=== PATIENT | female | born 2000 | race Caucasian/White ===

== ENCOUNTER 2024-06-19 10:22 | Outpatient (OUT) | payer MEDICAID, SELFPAY ==
[2024-06-19 11:28] LABS: Basophils Percent Auto 0.8 % (0.2-2.0); Eosinophils Absolute Auto 0.1 10^3/uL (0.0-0.7); Eosinophils Percent Auto 1.1 % (0.9-7.0); Hematocrit 43.1 % (36.0-48.0); Hemoglobin 15.1 g/dL (12.0-16.0); Immature Granulocytes Abs Auto 0.01 10^3/uL (0.00-0.03); Immature Granulocytes Pct Auto 0.2 % (0.0-0.5); Lymphocytes Absolute Auto 2.1 10^3/uL (1.2-3.8); Lymphocytes Percent Auto 44.2 % (20.5-60.0); Mean Corpuscular Hemoglobin 33.5 pg (26.7-34.0); Mean Corpuscular Volume 95.6 fL (81.0-99.0); Mean Platelet Volume 9.6 fL (9.5-13.5); Monocytes Absolute Auto 0.4 10^3/uL (0.3-0.8); Monocytes Percent Auto 8.5 % (1.7-12.0); Neutrophils Absolute Auto 2.1 10^3/uL (1.4-6.5); Neutrophils Percent Auto 45.2 % (43.0-75.0); Platelet Count 273 10^3/uL (150-450); Red Blood Count 4.51 10^6/uL (4.20-5.40); Red Cell Distribution Width 11.8 % (11.0-15.0); White Blood Count 4.7 10^3/uL (4.0-11.0)
[2024-06-19 11:54] LABS: Partial Thromboplastin Time 27.9 sec (22.3-36.2); Prothrombin Time 10.6 sec (9.0-11.6)
[2024-06-19 11:57] LABS: Free T4 0.91 ng/dL (0.76-1.46)
[2024-06-19 12:04] LABS: Thyroid Stimulating Hormone 1.052 uIU/mL (0.358-3.740); Total Protein 7.3 g/dL (6.4-8.2)
[2024-06-19 12:05] LABS: HCG Quantitative <1 mIU/mL
[2024-06-19 12:27] LABS: Estimated Average Glucose 108 mg/dL; Glycohemoglobin A1C 5.4 % (4.5-6.2)
[2024-06-20 15:08] LABS: Beta-2 Glycoprotein I Ab, IgA <9 (0-25); Beta-2 Glycoprotein I Ab, IgG <9 (0-20); Beta-2 Glycoprotein I Ab, IgM <9 (0-32)
[2024-06-21 03:07] LABS: Antithrombin Activity 94 % (75-135); Protein C-Functional 85 % (73-180)
== END 2024-06-19 10:23 | disposition home or self-care (01) ==
PROVIDERS: Family Provider Pediatrics; Visit Provider Obstetrics & Gynecology
DX: N92.0 Excessive and frequent menstruation with regular cycle (principal); D69.9 Hemorrhagic condition, unspecified
CPT/HCPCS: 36415; 81241; 83036; 84155; 84439; 84443; 84702; 85025; 85300; 85303; 85306; 85610; 85613; 85730; 86146; 86147

== ENCOUNTER 2025-03-26 15:55 | Outpatient (REF) | payer OTHER, MEDICAID, SELFPAY ==
--- OUTSIDE RECORDS SUMMARY | 2024-09-19 03:15 | XMS_ITS ---
Author Organization [facility] Servic es Address [address] [place] [address] Care Team Providers Care Red Hat Linux Engineer Name Role Phone Paula Ewing Primary Care Provider Adrianna Guidry Unavailable [phone] GUICHO MONTEIRO Unavailable Unavailable REASON FOR VISIT 3 weeks Social History Sex Assigned At : Social History Observation Description Sex Assigned At Female Encounters Encounter Location Date Provider Diagnosis [address] [place] [address] 09/19/2024 Paula Ewing Plan Of Treatment No Information Progress Notes * VIVIAN MCNALLY GDOB:2000 (24 yo F)Acc No.[id number]:09/19/2024 Behavioral Health Patient: Tamar VIVIAN VALENTINE Provider:?TARA CHENGHNP-BCDOB: 2000???Age:23 Y???Sex:FemaleDate:09/19/2024Phone:[phone]:[address], [place] Subjective: * Chief Complaints: * 3 weeks * Electronic signature of SONA Cheng BC on 03/26/2025 at 08:57 AM EST Sign off status: Pending * Appointment Provider: TARA MORELHNP-BC Date: 0 09/19/2024 Generated for Printing/Faxing/eTransmitting on:?03/26/2025 08:57 AM EST
--- OUTSIDE RECORDS SUMMARY | 2024-09-25 09:15 | XMS_ITS ---
Author Organization [facility] Servic es Address [address] [place] [address] Care Team Providers Care Buffing And Sueding Machine Operator Name Role Phone Paula Ewing Primary Care Provider [phone] Adrianna Guidry [phone] GUICHO MONTEIRO Unavailable Unavailable REASON FOR VISIT 2 week f/u Social History Sex Assigned At : Social History Observation Description Sex Assigned At Female Encounters Encounter Location Date Provider Diagnosis [address] [address] 09/25/2024 Adrianna Guidry Plan Of Treatment No Information Progress Notes * VIVIAN MCNALLY GDOB:2000 (24 yo F)Acc No.[id number]:09/25/2024 F/U - Patient Patient: Tamar VALENTINE VIVIAN Maria C :?Adrianna Guidry LPCDOB:2000???Age:23 Y ???Sex:FemaleDate:09/25/2024Phone:[phone]:[address], [place]Zna:Paula Ewing Subjective: * Chief Complaints: * 2 week f/u Care Plan Details* * Electronic signature of Adrianna Guidry LPC on 03/26/2025 at 08:57 AM ESTSign off status: Pending * Provider: Eleni Guidry LPC Date: 0 09/25/2024 Generated for Printing/Faxing/eTransmitting on:?03/26/2025 08:57 AM EST
--- OUTSIDE RECORDS SUMMARY | 2025-01-08 05:30 | XMS_ITS ---
Author Organization [facility] Servic es Address [address] [place] [address] Care Team Providers Care Burr Machine Operator Name Role Phone Paula Ewing Primary Care Provider [phone] Adrianna Guidry Unavailable [phone] GUICHO MONTEIRO Unavailable Unavailable REASON FOR VISIT 2 week f/u Social History Sex Assigned At : Social History Observation Description Sex Assigned At Female Encounters Encounter Location Date Provider Diagnosis [address] [facility] [place] [address] 01/08/2025 Adrianna Guidry Plan Of Treatment No Information Progress Notes * VIVIAN MCNALLY GDOB:2000 (24 yo F)Acc No.[id number]:01/08/2025 F/U - Patient Patient: Tamar VALENTINE VIVIAN Maria C :?Adrianna Guidry LPCDOB:2000???Age:24 Y ???Sex:FemaleDate:01/08/2025Phone:[phone]:[address], [place]Itf:Paula Ewing Subjective: * Chief Complaints: * 2 week f/u Billing Information: * Procedure Codes: Care Plan Details* * Electronic signature of Adrianna Guidry LPC on 03/26/2025 at 08:57 AM ESTSign off status: Pending * Provider: Eleni Guidry LPC Date: 0 01/08/2025 Generated for Printing/Faxing/eTransmitting on:?03/26/2025 08:57 AM EST
--- OUTSIDE RECORDS SUMMARY | 2025-01-14 06:15 | XMS_ITS ---
Author Organization [facility] Servic es Address [address] [place] [address] Care Team Providers Care Cherry Sorter Name Role Phone Paula Ewing Primary Care Provider [phone] Adrianna Guidry Unavailable [phone] GUICHO MONTEIRO Unavailable Unavailable REASON FOR VISIT 1 month f/u Social History Sex Assigned At : Social History Observation Description Sex Assigned At Female Encounters Encounter Location Date Provider Diagnosis [address] [place] [address] 01/14/2025 Paula Ewing Plan Of Treatment No Information Progress Notes * VIVIAN MCNALLY GDOB:2000 (24 yo F)Acc No.[id number]:01/14/2025 Behavioral Health Patient: Tamar VIVIAN VALENTINE Provider:?MINA ASENCIODOB: 2000???Age:24 Y???Sex:FemaleDate:01/14/2025Phone:[phone]:[address], [place] Subjective: * Chief Complaints: * 1 month f/u Billing Information: * Procedure Codes: * Electronic signature of SONA Asencio on 03/26/2025 at 08:57 AM EST Sign off status: Pending * Appointment Provider: MINA MOREL Date: 0 01/14/2025 Generated for Printing/Faxing/eTransmitting on:?03/26/2025 08:57 AM EST
--- OUTSIDE RECORDS SUMMARY | 2025-02-19 05:30 | XMS_ITS ---
Author Organization [facility] Address [address] [place] [address] Care Team Providers Care Project Associate Name Role Phone SAEIDMARTINCHRISTINE Unavailable Unavailable Edy Khoury Unavailable [phone] REASON FOR VISIT LEFT GREAT TOE/LEFT HAND PAIN Encounters Encounter Location Date Provider Diagnosis [facility] [address] [place] [address] 02/19/2025 Edy Khoury Acute pain of left foot M79.672 and Pain in left hand M79.642 Assessments Encounter Date Diagnosis (ICD Code) Assessment Notes Treatment Notes Treatment Clinical Notes Section Notes 02/19/2025 Acute pain of left foot (ICD-10 - M79.672) 02/19/2025Pain in left hand (ICD-10 - M79.642) Plan Of Treatment Pending Test Test Name Order Date SCC- FOOT 3 VIEW LEFT 18011 02/19/2025 SCC- HAND 3 VIEW LEFT 42675 02/19/2025 Progress Notes * VIVIAN MCNALLY GDOB:2000 (24 yo F)Acc No.[id number]:02/19/2025 Patient:?VIVIAN MCNALLY :?Edy Khoury, MDDOB:2000???Age:24 Y ???Sex:FemaleDate:02/19/2025Phone:[phone]:[address] [place] [address] Subjective: * Chief Complaints: * 1 . LEFT GREAT TOE/LEFT HAND PAIN. * Medical History: Objective: * Vitals: Assessment: * Assessment: 1.?Acute pain of left foot - M79.672???2.?Pain in left hand - M79.642??? Plan: * Treatment: ?Imaging: SCC- FOOT 3 VIEW LEFT 609773.?Pain in left hand?Imaging: SCC- HAND 3 VIEW LEFT 43175 * Procedure Codes: 7 3630 X-ray Foot, 3 view, 82137 X-ray Hand, 3 view Forms: * Images: * Electronic signature of Edy Khoury MD on 03/26/2025 at 08:57 AM ESTSign off status: Pending * Provider: Tri Khoury MD Date: 1 Generated for Printing/Faxing/eTransmitting on:?03/26/2025 08:57 AM EST
--- OUTSIDE RECORDS SUMMARY | 2025-02-27 03:30 | XMS_ITS ---
Author Organization [facility] Servic es Address [address] [place] [address] Care Team Providers Care Logger Name Role Phone Paula Ewing Primary Care Provider Adrianna Guidry Unavailable [phone] GUICHO MONTEIRO Unavailable Unavailable REASON FOR VISIT BH F/U Social History Sex Assigned At : Social History Observation Description Sex Assigned At Female Encounters Encounter Location Date Provider Diagnosis [address] [place] [address] 02/27/2025 Paula Ewing Plan Of Treatment No Information Progress Notes * VIVIAN MCNALLY GDOB:2000 (24 yo F)Acc No.[id number]:02/27/2025 Behavioral Health Patient: Tamar VIVIAN VALENTINE Provider:?DIANA CHENGP-BCDOB: 2000???Age:24 Y???Sex:FemaleDate:02/27/2025Phone:[phone]:[address], [place] Subjective: * Chief Complaints: * B H F/U * Electronic signature of SONA Cheng BC on 03/26/2025 at 08:57 AM EST Sign off status: Pending * Appointment Provider: DIANA MORELP-BC Date: Generated for Printing/Faxing/eTransmitting on:?03/26/2025 08:57 AM EST
--- OUTSIDE RECORDS SUMMARY | 2025-03-26 09:00 | XMS_ITS | Encounter Summary ---
Author Organization [facility] Address [address] [place] [address] Care Team Providers Care Transplant Coordinator Name Role Phone Radha Camacho DO Unavailable [phone] Trinity Hansen DO Primary Care Provider Encounter Details DateTypeDepartmentCare Team (Latest Contact Info)Cryydfckpws92/25/2025 9:00 AM ESTProcedure Visit [facility] [address] [place] [address] Trinity Palmer PA [address] [place] [address] Well woman exam with routine gynecological exam Social History Tobacco UseTypesPacks/DayYears UsedDateSmoking Tobacco: NeverSmokeless Tobacco: NeverAlcohol UseStandard Drinks/WeekCommentsNever0 (1 standard drink = 0.6 oz pure alcohol)caffeine intake: 1-2 cups per dayCommentsUnknownSex and Gender InformationValueDate RecordedSex Assigned at BirthNot on fileLegal Sex Dkzgfl5507/14/2022 6:39 PM EDTGender IdentityNot on fileSexual OrientationNot on filedocumented as of this encounter Last Filed Vital Signs Vital SignReadingTime TakenCommentsBlood Ezvqiooz397/8203/26/2025 9:21 AM EST Pulse--Temperature--Respiratory Rate--Oxygen Saturation--Inhaled Oxygen Concentration--Htpzht77.1 kg (192 lb 1.9 oz)03/26/2025 9:21 AM ESTHeight--Body Mass Index34.03008/30/2023 9:11 AM EDTdocumented in this encounter Progress Notes * KASEY Patel - 03/26/2025 9:00 AM EST Reason for Appointment: Patient ID: Kenya Polanco is a 24 y.o. female who presents for No chief complaint on file. Patient presents today for Annual Exam. MEDICATIONS Current Outpatient Medications Medication Instructions ??? buPROPion XL (WELLBUTRIN XL) 300 mg, Every morning ??? cetirizine (ZYRTEC) 10 mg, Every 24 hours ??? desogestrel-ethinyl estradiol (Apri) 0.15-30 MG-MCG tablet 1 tablet, Oral, Daily, Take 1 tabletby mouth daily ??? escitalopram (LEXAPRO) 10 mg, Daily ??? fluticasone (Flonase Allergy Relief) 50 MCG/ACT nasal spray Every 12 hours ??? hydrOXYzine HCl (Atarax) 25 MG tablet Every 24 hours ??? montelukast (Singulair) 10 MG tablet 1 tablet, Oral, Daily ALLERGIES Allergies Allergen Reactions ??? Wound Dressing Adhesive Itching PROBLEMS Active Ambulatory Problems Diagnosis Date Noted ??? Sprain of left little finger 09/22/2022 ??? Paresthesia of skin 07/19/2023 Resolved Ambulatory Problems Diagnosis Date Noted ??? No Resolved Ambulatory Problems Past Medical History: Diagnosis Date ??? ADHD (attention deficit hyperactivity disorder) ??? Anxiety ??? Autoimmune disorder (HCC) ??? Depression ??? Hypertension ??? Lupus (CMS/HCC) HISTORY PAST MEDICAL HISTORY SOCIAL HISTORY Past Medical History: Diagnosis Date ??? ADHD (attention deficit hyperactivity disorder) ??? Anxiety ??? Autoimmune disorder (HCC) ??? Depression ??? Hypertension ??? Lupus (CMS/HCC) Social History Tobacco Use ??? Smoking status: Never ??? Smokeless tobacco: Never Substance Use Topics ??? Alcohol use: Never Comment: caffeine intake: 1-2 cups per day ??? Drug use: Never Comment: Denies smoking marijuna FAMILY HISTORY Family History Problem Relation Name Age of Onset ??? Hypertension Mother ??? Mental illness Mother ??? Migraines Mother ??? Diabetes Father ??? Hypertension Father ??? Stroke Father ??? Hyperlipidemia Father ??? Diabetes Paternal Grandmother ??? Heart disease Paternal Grandmother ??? Diabetes Paternal Grandfather ??? Hypertension Paternal Grandfather ??? Heart disease Paternal Grandfather ??? Stroke Paternal Grandfather ??? Asthma Sibling ??? Depression Sibling ??? Migraines Sibling SURGICAL HISTORY Past Surgical History: Procedure Laterality Date ??? TONSILLECTOMY Bilateral 05/02/2004 REVIEW OF SYSTEMS Review of Systems: Review of Systems Constitutional: Negative. HENT: Negative. Eyes: Negative. Respiratory: Negative. Cardiovascular: Negative. Gastrointestinal: Negative. Genitourinary: Negative. Musculoskeletal: Negative. Skin: Negative. Neurological: Negative. All other systems reviewed and are negative. Hematological: Negative. Endocrine: Negative. Allergic/Immunologic: Negative. OBJECTIVE Objective: Physical Exam Constitutional: Appearance: Normal appearance. She is well-developed. Genitourinary: Vulva normal. Right Adnexa: not tender and no mass present. Left Adnexa: not tender and no mass present. No cervical discharge. IUD strings visualized. Breasts: Breasts are soft. Right: Normal. Left: Normal. HENT: Head: Normocephalic. Nose: Nose normal. Mouth/Throat: Mouth: Mucous membranes are moist. Cardiovascular: Rate and Rhythm: Normal rate and regular rhythm. Pulmonary: Effort: Pulmonary effort is normal. Breath sounds: Normal breath sounds. Abdominal: General: Bowel sounds are normal. There is no distension. Palpations: Abdomen is soft. Tenderness: There is no abdominal tenderness. There is no guarding or rebound. Musculoskeletal: General: No swelling. Normal range of motion. Cervical back: Normal range of motion. Right lower leg: No edema. Left lower leg: No edema. Neurological: General: No focal deficit present. Mental Status: She is alert and oriented to person, place, and time. Skin: General: Skin is warm and dry. Psychiatric: Mood and Affect: Mood normal. Behavior: Behavior normal. Vitals and nursing note reviewed. Exam conducted with a hard rock drill operator present. Vitals: Estimated body mass index is 34.03 kg/m?? as calculated from the following: Height as of 08/30/23: 5' 3 . Weight as of this encounter: 192 lb 1.9 oz. BP: 116/82 Patient's last menstrual period was 02/23/2025 (exact date). Assessment/Plan ICD-10-CM 1. Well woman exam with routine gynecological exam Z01.419 Pap Smear Assessment/Plan Annual Exam: Patient presents today for an annual exam. Patient states she is doing well and has no complaints. Pap was obtained without difficulty. Follow Up: Patient is to return in one year for annual unless needed otherwise. Documented by Perlita Love LPN on behalf of: KASEY Patel documented in this encounter Plan of Treatment DateTypeDepartmentCare Team (Latest Contact Info)Fdsutbopmzk29/01/2026 10:00 AM ESTProcedure Visit [facility] [address] [place] [address] Trinity Palmer PA [address] [place] [address] NameTypePriorityAssociated DiagnosesOrder SchedulePap SmearPathology and CytologyRoutine Well woman exam with routine gynecological exam Ordered: 03/26/2025documented as of this encounter Visit Diagnoses Diagnosis Well woman exam with routine gynecological exam Routine gynecological examination documented in this encounter Care Teams Team MemberRelationshipSpecialtyStart DateEnd Date Trinity Hansen DO [address] [place] [address] PCP - GeneralFamily Medicine07/21/23 Radha Camacho DO [address] [place] [address] Referring PhysicianNeurology07/19/23documented as of this encounter
--- OUTSIDE RECORDS SUMMARY | 2025-03-26 16:02 | XMS_ITS | Clinical Summary ---
Author Organization [facility] Address [address] [place] [address] Care Team Providers Care Body Sander Name Role Phone Trinity Hansen DO Primary Care Provider [phone] Allergies No known active allergies Social History Tobacco UseTypesPacks/DayYears UsedDateSmoking Tobacco: NeverSmokeless Tobacco: Never Tobacco Cessation:Counseling Given: Not Answered Alcohol UseStandard Drinks/WeekCommentsNever0 (1 standard drink = 0.6 oz pure alcohol)CommentsNoSex and Gender InformationValueDate RecordedSex Assigned at BirthNot on fileLegal MqxLsipvj17/21/2023 3:19 PM EDTGender Identity Not on fileSexual OrientationNot on file Last Filed Vital Signs Vital SignReadingTime TakenCommentsBlood Rcyqcejr541/9105/18/2023 5:05 PM EST Ybpwl767405/18/2023 5:05 PM CHYZcqkamxhcdm17.6 ??C (97.8 ??F)05/18/2023 5:05 PM ESTRespiratory Muxy000805/18/2023 5:05 PM ESTOxygen Hfdgqcsyzc10%05/18/2023 5:05 PM ESTInhaled Oxygen Concentration--Uezqjf48 kg (194 lb)05/18/2023 5:12 PM EST Zymlcu086 cm (5' 3 )05/18/2023 5:12 PM ESTBody Mass Index34.37005/18/2023 5:12 PM EST Plan of Treatment Health MaintenanceDue DateLast DoneCommentsChlamydia Kffqanwxw44/02/2003Wellness Visit2005Depression Screening/Follow-Up (PHQ-2/9)2014HIV Screening 2017HPV Vaccines (1 - 3-dose series)2017Meningococcal B Vaccine (1 of 2 - Standard)2018Hepatitis C Rcvxwcuta62/02/2021Pap Smear12/02/2023 COVID-19 Vaccine (1 - 2024- season)2024Influenza Vaccine (#1)2024 04/30/2005, 03/31/2005Tetanus/Diphtheria/Pertussis (7 - Td or Tdap)12/14/2025 12/15/2015, 09/24/2008, 03/11/2004, Additional history existsZoster Vaccines (1 of 2)2052RSV Vaccines (1 - 1-dose 75+ series)2077Hepatitis B JmyalupnIblrgequa71/09/2004, 05/14/2003, 02/12/2003, Additional history exists Pneumococcal VaccineAged Out12/11/2003, 10/10/2003, 05/14/2003, Additional history existsNo longer eligible based on patient's age to complete this topic HIB XwxaderuKexvcwmav91/10/2004, 07/09/2003, 05/14/2003, Additional history existsIPV LobdgfbwKoasvupxv59/26/2009, 07/09/2003, 05/14/2003, Additional history existsMMR WxxvtduiXsezvrpoq04/26/2009, 12/11/2003Varicella Vaccines Eocsfbhnz31/26/2009, 12/11/2003Hepatitis A ZyygmppbAsubymzas72/22/2017, 12/15/2015Meningococcal ACWY UbnboehNthvymfev37/27/2021, 12/15/2015Rotavirus VaccinesAged OutNo longer eligible based on patient's age to complete this topic Insurance Care Teams Team MemberRelationshipSpecialtyStart DateEnd Date Trinity Hansen DO [address] [place] [address] PCP - GeneralEndocrinology/Metabolism05/18/23
--- OUTSIDE RECORDS SUMMARY | 2025-03-26 16:02 | XMS_ITS | Clinical Summary ---
Author Organization [facility] Address [address] [place] [address] Care Team Providers Care Skip Load Driver Name Role Phone Radha Camacho DO Unavailable [phone] Trinity Hansen DO Primary Care Provider [phone] Allergies Active AllergyReactionsCriticalityNoted DateCommentsWound Dressing Adhesive Tjxokmt5704/15/2022 Medications MedicationSigDispense QuantityRefillsLast FilledStart DateEnd DateStatus cetirizine (ZyrTEC) 10 MG chewable tablet 10 mg 1 (one) time each day at the same time.Active fluticasone (Flonase Allergy Relief) 50 MCG/ACT nasal spray every 12 (twelve) hours.Active montelukast (Singulair) 10 MG tablet Take 1 tablet by mouth DailyActive desogestrel-ethinyl estradiol (Apri) 0.15-30 MG-MCG tablet Indications:Breakthrough bleeding associated with intrauterine device (IUD)Take 1 tablet by mouth Daily Take 1 tablet by mouth daily 28 tablet 5Active buPROPion XL (Wellbutrin XL) 300 MG 24 hr tablet Take 300 mg by mouth in the morning.5Active escitalopram (Lexapro) 10 MG tablet Take 10 mg by mouth Daily5Active hydrOXYzine HCl (Atarax) 25 MG tablet 1 (one) time each day at the same time5Active Drospirenone (Slynd) 4 MG tablet Indications:Menorrhagia with irregular cycleTake 4 mg by mouth Daily 28 tablet 110Discontinued lamoTRIgine (LaMICtal) 25 MG tablet 1 tablet every day for 2 weeks and then 2 tablets every day for 2 weeks Orally as directed for 30 daysDiscontinued OLANZapine (ZyPREXA) 2.5 MG tablet 1 (one) time each day at the same timeDiscontinuedHospital, Clinic, or Other Facility Administered MedicationOrdered DoseRouteFrequencyStart DateEnd DateStatus Levonorgestrel intrauterine device 52 mg Indications:Encounter for IUD zmcemukpn74 mwUAWicyaozgwu64 Active Active Problems ProblemNoted DateDiagnosed DateParesthesia of skin07/19/2023Sprain of left little ltiiql1009/22/2022 Encounters DateTypeDepartmentCare EoenHlbitnvuabg81/25/2025 9:00 AM ESTProcedure Visit [facility] [address] [place] [address] Trinity Palmer PA Well woman exam with routine gynecological exam03/26/2025amboo flowsheet [facility] [address] [place] [address] Trinity Palmer PA 03/26/20250556Liuetl43/03/2025Telephone [facility] [address] [place] [address] Lul Powell DO from Last 3 Months Family History Medical HistoryRelationNameCommentsDiabetesFatherHyperlipidemiaFather HypertensionFatherStrokeFatherHypertensionMotherMental illnessMotherMigraines MotherDiabetesPaternal GrandfatherHeart diseasePaternal GrandfatherHypertension Paternal GrandfatherStrokePaternal GrandfatherDiabetesPaternal GrandmotherHeart diseasePaternal GrandmotherAsthmaSiblingDepressionSiblingMigrainesSibling RelationNameStatusCommentsFatherMotherPaternal GrandfatherPaternal Grandmother Sibling Social History Tobacco UseTypesPacks/DayYears UsedDateSmoking Tobacco: NeverSmokeless Tobacco: Never Tobacco Cessation:Counseling Given: Not Answered Alcohol UseStandard Drinks/WeekCommentsNever0 (1 standard drink = 0.6 oz pure alcohol)caffeine intake: 1-2 cups per dayCommentsUnknownSex and Gender InformationValueDate RecordedSex Assigned at BirthNot on fileLegal SexFemale 07/14/2022 6:39 PM EDTGender IdentityNot on fileSexual OrientationNot on file Last Filed Vital Signs Vital SignReadingTime TakenCommentsBlood Rfnrpotc264/8211 9:21 AM EST Ntdka257008/30/2023 9:11 AM ZCFXdtievvukaa62.5 ??C (97.7 ??F)10/08/2022 12:09 PM EDTRespiratory Cuhu037708/30/2023 9:11 AM EDTOxygen Saturation--Inhaled Oxygen Concentration--Poykpd20.1 kg (192 lb 1.9 oz)03/26/2025 9:21 AM KDNZpcrts668 cm (5' 3 )08/30/2023 9:11 AM EDTBody Mass Index34.03008/30/2023 9:11 AM EDT Plan of Treatment DateTypeDepartmentCare Team (Latest Contact Info)Auryiuymicj01/01/2026 10:00 AM ESTProcedure Visit [facility] [address] [place] [address] Trinity Palmer PA [address] [place], [place] [address] Insurance * Guarantor: Kenya Polanco GAccount TypeRelation to PatientDate of BirthPhone Billing AddressPersonal/RkjfhoMgrl35/02/2003 [facility] [place] [address] Care Teams Team MemberRelationshipSpecialtyStart DateEnd Date Trinity Hansen DO [address] [place], [place] [address]dict [place] [id number] PCP - GeneralFamily Medicine07/21/23 Radha Camacho DO [address] [place] [address] Referring PhysicianNeurology07/19/23
--- OUTSIDE RECORDS SUMMARY | 2025-03-26 16:02 | XMS_ITS | Clinical Summary ---
Author Organization [employer] [facility] Address [id number] [address] [place] [address] Care Team Providers Care Manager Philosophy Name Role Phone No Pcp, No Pcp Primary Care Provider Unavailabl e Allergies Active AllergyReactionsCriticalityNoted DateCommentsAdhesive Tape-Silicones Hjpyjng0804/15/2022 Medications MedicationSigDispense QuantityRefillsLast FilledStart DateEnd DateStatus lamoTRIgine (LaMICtal) 25 mg tablet Take 6 tablets (150 mg total) by mouth in the morning.5Active OLANZapine (ZyPREXA) 5 mg tablet Take 1.5 tablets (7.5 mg total) by mouth nightly.5Active buPROPion XL (WELLBUTRIN XL) 150 mg 24 hr tablet Take 2 tablets (300 mg total) by mouth every morning.5Active sulfamethoxazole-trimethoprim (BACTRIM DS) 800-160 mg per tablet Take 1 tablet by mouth in the morning and 1 tablet before bedtime.Active escitalopram (LEXAPRO) 5 mg tablet Take 1 tablet (5 mg total) by mouth in the morning.Active omeprazole (PriLOSEC) 10 mg capsule Take 1 capsule (10 mg total) by mouth in the morning.Active spironolactone (ALDACTONE) 50 mg tablet Take 1 tablet (50 mg total) by mouth in the morning.Active ondansetron ODT (ZOFRAN ODT) 4 mg disintegrating tablet Dissolve 1 tablet (4 mg total) on tongue every 8 (eight) hours as needed for nausea for up to 10 doses. 10 tablet 5Active metoclopramide (REGLAN) 10 mg tablet Take 1 tablet (10 mg total) by mouth every 6 (six) hours as needed (nausea). 30 tablet 02/08/2025tive Encounters DateTypeDepartmentCare CjcsEmbjtoqmkea83/10/2025 11:19 AM EDT - 02/08/2025 1:20 PM [facility] [address] [place] [address] Ko Hathaway MD Nausea and vomiting, unspecified vomiting type (Primary Dx) Discharge Disposition: Home02/08/20252749Skyrsb20/19/2025 7:51 AM EDT - 01/18/2025 10:43 AM [facility] [address] [place] [address] Omar Pedraza DO Nausea and vomiting, unspecified vomiting type (Primary Dx) Discharge Disposition: Home01/18/20250229Yrvyqw20/17/2025 11:21 AM EDT - 01/16/2025 12:54 PM [facility] [address] [place] [address] Alfonzo Selby MD Nausea and vomiting, unspecified vomiting type (Primary Dx) Discharge Disposition: Home01/16/2025Travelfrom Last 3 Months Social History Tobacco UseTypesPacks/DayYears UsedDateSmoking Tobacco: NeverSmokeless Tobacco: Never Tobacco Cessation:Counseling Given: Not Answered Alcohol UseStandard Drinks/WeekCommentsNot Currently0 (1 standard drink = 0.6 oz pure alcohol)Hunger ScreeningAnswerDate RecordedWithin the past 12 months we worried whether our food would run out before we got money to buy more.Never True02/08/2025Within the past 12 months the food we bought just didn't last and we didn't have money to get more.Never True02/08/2025CommentsNoSex and Gender InformationValueDate RecordedSex Assigned at BirthNot on fileLegal Sex Idnmqp5704/22/2024 3:28 PM ESTGender IdentityNot on fileSexual OrientationNot on file Last Filed Vital Signs Vital SignReadingTime TakenCommentsBlood Antytdnp713/6902/08/2025 1:19 PM EDT Ohemx493902/08/2025 1:19 PM KOGXbfkpclkbmi56.7 ??C (98.1 ??F)02/08/2025 11:24 AM EDTRespiratory Movx5270 11:24 AM EDTOxygen Nrjjmrquxi44%02/08/2025 1:19 PM EDTInhaled Oxygen Concentration--Eddnsg58.9 kg (185 lb)02/08/2025 11:24 AM ELQCtiavy878 cm (5' 3 )02/08/2025 11:24 AM EDTBody Mass Index32.7702/08/2025 11:24 AM EDT Plan of Treatment Not on file Medical Devices Not on file Procedures Procedure NamePriorityDate/TimeAssociated DiagnosisCommentsPOCT , URINE (NUCG)Nmwawfw7402/08/2025 11:52 AM EDT POCT NURSING URINE MACROSCOPIC TCKwokpfx48/10/2025 11:51 AM EDT ER EXTRA URINE FZZOVUBXBW88/10/2025 11:46 AM EDT ER EXTRA URINE IHLBLJESZYX46/10/2025 11:46 AM EDT ER EXTRA MOQZBFSYR35/10/2025 11:46 AM EDT POCT , URINE (NUCG)Dhewwll2101/18/2025 8:55 AM EDT POCT NURSING URINE MACROSCOPIC TPAhqrtmg45/19/2025 8:53 AM EDT EXTRA TUBES BLUE IZVYwbnarb45/19/2025 8:49 AM EDT EXTRA TPBPFDsapnrk33/19/2025 8:49 AM EDT NRSIWAOGGD44/19/2025 8:49 AM EDT COMPREHENSIVE METABOLIC FJPEQZAQE57/19/2025 8:49 AM EDT CBC WITH AUTO BFKYAEGBOSGUTKTC73/19/2025 8:49 AM EDT POCT , URINE (NUCG)Sinpeeu6901/16/2025 11:55 AM EDT POCT NURSING URINE MACROSCOPIC OMMaijtkn13/17/2025 11:53 AM EDT ER EXTRA URINE DEGOFWTWKL00/17/2025 11:50 AM EDT ER EXTRA URINE MBEMXGEPXWN77/17/2025 11:50 AM EDT ER EXTRA JUVJUNUZS84/17/2025 11:50 AM EDT EXTRA TUBES SST CRJVriravt09/17/2025 11:40 AM EDT EXTRA TUBES BLUE GVDCvmluyn77/17/2025 11:40 AM EDT EXTRA SMBIDHlkjopm69/17/2025 11:40 AM EDT COMPREHENSIVE METABOLIC UJQCCVPFP46/17/2025 11:40 AM EDT CBC WITH AUTO RYCIAMRQLXPXNNAE68/17/2025 11:40 AM EDT from Last 3 Months Results * POCT , urine (02/08/2025 11:52 AM EDT) Only the most recent of3 resultswithin the time period is included. ComponentValueRef RangeTest MethodAnalysis TimePerformed AtPathologist Signature POC Urine PregnancyNegativeNegative, Afrfozbrgwyya12/10/2025 11:58 AM EDT [facility]pecimen (Source)Anatomical Location / LateralityCollection Method / VolumeCollection TimeReceived SbcyBhwbb88/10/2025 11:52 AM EDT1 11:58 AM EDT Narrative Authorizing ProviderResult TypeResult StatusRyan M Hartle MDPOINT OF CARE TEST ORDERABLESFinal ResultPerforming OrganizationAddressCity/State/ZIP CodePhone Number [facility] [address] [place] [address], * POCT Nursing Urine Macroscopic UA (02/08/2025 11:51 AM EDT) Only the most recent of3 resultswithin the time period is included. ComponentValueRef RangeTest MethodAnalysis TimePerformed AtPathologist Signature POC Urine Specific Gravity1.0201.010, 1.015, 1.020, 1.3900002/08/2025 11:[address] [facility] Urine Leukocyte EsteraseNegativeNegative 02/08/2025 11:52 AM [facility] Urine Nitrite QntwwrnzMdlpvjte99/10/2025 11:52 AM [facility]WV[facility] Urine pH7.55.0, 6.0, 6.5, 7.0, 7.5, 8.0, 8.5, 5.510 11:[address] [facility] Urine IdvicgjSybxysoyKydtwywi59/10/2025 11:52 AM [facility] Urine GlucoseNegativeNegative 02/08/2025 11:52 AM [facility] Urine Ketones BthgnylwEgojkkpy55/10/2025 11:52 AM [facility] Urine Urobilinogen1.0 E.U./dL02/08/2025 11:52 AM [facility] Urine CftgtfuaxGwafwcqvZiosaccl65/10/2025 11:52 AM [facility]WV[facility] Urine Blood/PABWrorsasxDyqcvazo10/10/2025 11:52 AM [facility]pec[facility] (Source)Anatomical Location / LateralityCollection Method / VolumeCollection TimeReceived SrogAgtcj55/10/2025 11:51 AM EDT1 11:52 AM EDT Narrative Authorizing ProviderResult TypeResult StatusKo Hathaway MDPOINT OF CARE TEST ORDERABLESFinal ResultPerforming OrganizationAddressty/State/ZIP CodePhone Number [address] [place] [address], [place] * Extra Urine [place] (02/08/2025 11:46 AM EDT) Only the most recent of2 resultswithin the time period is included. ComponentValueRef RangeTest MethodAnalysis TimePerformed AtPathologist Signature Extra TubeAuto Amquyofc36/10/2025 1:01 PM [facility] Specimen (Source)Anatomical Location / LateralityCollection Method / Volume Collection TimeReceived TimeUrineUrine specimen collection, clean catch / Heztwga6702/08/2025 11:46 AM EDT1 12:04 PM EDT Narrative Authorizing ProviderResult TypeResult StatusKo CLANCY ORDERABLES Final ResultPerforming OrganizationAddressCity/State/ZIP CodePhone Number [address] [place] [address], [place] * Extra Urine Culture (02/08/2025 11:46 AM EDT) Only the most recent of2 resultswithin the time period is included. ComponentValueRef RangeTest MethodAnalysis TimePerformed AtPathologist Signature Extra TubeAuto Pzqyljtc42/10/2025 1:01 PM [facility] Specimen (Source)Anatomical Location / LateralityCollection Method / Volume Collection TimeReceived TimeUrineUrine specimen collection, clean catch / Jwvvftj0102/08/2025 11:46 AM EDT1 12:05 PM EDT Narrative Authorizing ProviderResult TypeResult StatusKo CLANCY ORDERABLES Final ResultPerforming OrganizationAddressty/State/ZIP CodePhone Number [address] [place] [address], [place] * Extra Urine (02/08/2025 11:46 AM EDT) Only the most recent of2 resultswithin the time period is included. ComponentValueRef RangeTest MethodAnalysis TimePerformed AtPathologist Signature Extra TubeAuto Squwidib36/10/2025 1:01 PM [facility] Specimen (Source)Anatomical Location / LateralityCollection Method / Volume Collection TimeReceived TimeUrineUrine / Jdzoqwz3102/08/2025 11:46 AM EDT 02/08/2025 12:04 PM EDT Narrative Authorizing ProviderResult TypeResult StatusKo CLANCY ORDERABLES Final ResultPerforming OrganizationAddressCity/State/ZIP CodePhone Number [address] [place] [address], [place] * Light Blue Top (01/18/2025 8:49 AM EDT) Only the most recent of2 resultswithin the time period is included. ComponentValueRef RangeTest MethodAnalysis TimePerformed AtPathologist Signature Extra TubeAuto Ocwyzcmp02/19/2025 10:01 AM EDTPMERCY HEALTH URBANA HOSPITALpecimen (Source)Anatomical Location / LateralityCollection Method / VolumeCollection TimeReceived TimeBloodVenous blood / Pcbybpz6301/18/2025 8:49 AM EDT01/18/2025 8:56 AM EDT Narrative Authorizing ProviderResult TypeResult StatusOmar BAILON BLOOD ORDERABLESFinal ResultPerforming OrganizationAddressCity/State/ZIP CodePhone Number [address] [place] [address], [place] * (ABNORMAL) CBC auto differential (01/18/2025 8:49 AM EDT) Only the most recent of2 resultswithin the time period is included. ComponentValueRef RangeTest MethodAnalysis TimePerformed AtPathologist Signature WBC5.04 - 11 x10E9/L01/18/2025 9:02 AM EDTPKINDRED HEALTHCARERBC Count4.713.8 - 5.2 X10E12/L01/18/2025 9:02 AM EDTPKINDRED HEALTHCAREHemoglobin15.011.7 - 15.5 g/dL01/18/2025 9:02 AM EDTPKINDRED HEALTHCAREHematocrit43.835 - 47 %01/18/2025 9:02 AM EDTPPROMEDICA MEMORIAL HOSPITALV9380 - 100 fL01/18/2025 9:02 AM EDTPKINDRED HEALTHCAREMCH31.827 - 34 pg01/18/2025 9:02 AM EDTPKINDRED HEALTHCAREMCHC34.232 - 36 g/dL01/18/2025 9:02 AM EDWRIGHT[facility]PATTERSON [facility]ICAL CENTERRDW12.911.5 - 15 %01/18/2025 9:02 AM EDWRIGHT-PATTERSON MEDICAL CENTERPlatelet Xvrjb959737 - 450 X10E9/L01/18/2025 9:02 AM EDT [facility]ITALMPV6.9(L)7 - 12 fL01/18/2025 9:02 AM EDT [facility]ITALNeutrophils %51.2%01/18/2025 9:02 AM EDT [facility]PITALLymphocytes %40.2%01/18/2025 9:02 AM EDT [facility]ITALMonocytes %6.4%01/18/2025 9:02 AM EDT [facility]ITALEosinophils %1.3%01/18/2025 9:02 AM EDT [facility]ITALBasophils %0.9%01/18/2025 9:02 AM EDT [facility]ITALNeutrophils Absolute (A)2.51.5 - 6.6 10*3/uL 01/18/2025 9:02 AM EDWRIGHT-PATTERSON MEDICAL CENTERLymphocytes Absolute2.0 1.0 - 3.5 10*3/uL01/18/2025 9:02 AM EDWR[facility]ENTER Monocytes Absolute0.30.0 - 0.9 10*3/uL01/18/2025 9:02 AM EDTPKINDRED HEALTHCAREEosinophils Absolute0.10.0 - 0.4 10*3/uL01/18/2025 9:02 AM EDT [facility]ITALBasophils Absolute0.00.0 - 0.2 10*3/uL 01/18/2025 9:02 AM EDWRIGHT-PATTERSON MEDICAL CENTERDifferential Type AUTOMATED NIAVDPHJQVDA11/19/2025 9:02 AM EDTPKINDRED [facility]ALTHCARE Specimen (Source)Anatomical Location / LateralityCollection Method / Volume Collection TimeReceived TimeBloodVenous blood / UnknownVenipuncture / Unknown 01/18/2025 8:49 AM EDT01/18/2025 8:55 AM EDT Narrative Authorizing ProviderResult TypeResult StatusMaxclifton Lindawalder [facility]AB BLOOD ORDERABLESFinal ResultPerforming OrganizationAddressty/State/ZIP CodePhone Number [address] [place] [address], * Lipase (01/18/2025 8:49 AM EDT)ComponentValueRef RangeTest MethodAnalysis Time Performed AtPathologist RcroxeutaHTJJVT8258 - 40 U/L01/18/2025 9:14 AM EDT [facility]ENTERpecimen (Source)Anatomical Location / LateralityCollection Method / VolumeCollection TimeReceived TimeBloodVenous blood / UnknownVenipuncture / Sphyikg7601/18/2025 8:49 AM EDT01/18/2025 8:55 AM EDT Narrative Authorizing ProviderResult TypeResult StatusMaxdosher memorial hospital [facility] BLOOD ORDERABLESFinal ResultPerforming OrganizationAddressty/State/ZIP CodePhone Number [address] [address], * Comprehensive metabolic panel (01/18/2025 8:49 AM EDT) Only the most recent of2 resultswithin the time period is included. ComponentValueRef RangeTest MethodAnalysis TimePerformed AtPathologist Signature EIVAZA409292 - 146 mmol/L01/18/2025 9:17 AM EDTPKINDRED HEALTHCAREPOTASSIUM3.93.5 - 5.0 mmol/L01/18/2025 9:17 AM EDWRIGHT-PATTERSON MEDICAL CENTERCHLORIDE10298 - 109 mmol/L01/18/2025 9:17 AM EDTPKINDRED HEALTHCARECARBON VJUKBGU8955 - 32 mmol/L01/18/2025 9:17 AM EDT [facility]ITALANION GAP85 - 15 mmol/L01/18/2025 9:17 AM EDT [facility]OSPITALBLOOD UREA MORBKYDY762 - 23 mg/dL01/18/2025 9:17 AM [facility] YOUNGSTOWNCREATININE0.890.40 - 1.00 mg/dL 01/18/2025 9:17 AM [facility] YOUNGSTOWNComment:METHOD TRACEABLE TO IDMS CMWRELZAJAWVWJR9151 - 99 mg/dL01/18/2025 9:17 AM [facility] - YOUNGSTOWNCALCIUM8.98.5 - 10.5 mg/dL01/18/2025 9:17 AM EDT [facility]ITALTOTAL PROTEIN7.26.0 - 8.0 g/dL01/18/2025 9:17 AM [facility] YOUNGSTOWNALBUMIN3.93.2 - 5.3 g/dL01/18/2025 9:17 AM [facility] YOUNGSTOWNALKALINE UYNWQYSICEA0061 - 130 U/L 01/18/2025 9:17 AM [facility] YOUNGSTOWNAST20<=41 U/L01/18/2025 9:17 AM [facility] YOUNGSTOWNALT17<=31 U/L01/18/2025 9:17 AM [facility] - YOUNGSTOWNBILIRUBIN,TOTAL0.60.3 - 1.2 mg/dL 01/18/2025 9:17 AM [facility] - YOUNGSTOWNEGFR Non-Race Dependent >90>=60 ml/min/1.73sq.m001/18/2025 9:17 AM [facility] Comment: eGFR not reported due to non-numeric value for Creatinine. Reported eGFR is based on the CKD-EPI 2020 equation that does not use a race coefficient. Specimen (Source)Anatomical Location / LateralityCollection Method / Volume Collection TimeReceived TimeBloodVenous blood / UnknownVenipuncture / Unknown 01/18/2025 8:49 AM EDT01/18/2025 8:55 AM EDT Narrative Authorizing ProviderResult TypeResult StatusMaxclifton BAILON BLOOD ORDERABLESFinal ResultPerforming OrganizationAddressCity/State/ZIP CodePhone Number [address] [place] [address], * SST TOP (01/16/2025 11:40 AM EDT)ComponentValueRef RangeTest MethodAnalysis TimePerformed AtPathologist SignatureExtra TubeAuto Rkctalea06/17/2025 1:01 PM EDTPROMEDICA SHARP CHULA VISTA MEDICAL CENTERpecimen (Source)Anatomical Location / LateralityCollection Method / VolumeCollection TimeReceived TimeBloodVenous blood / Mtjbzlj3901/16/2025 11:40 AM EDT01/16/2025 11:42 AM EDT Narrative Authorizing ProviderResult TypeResult StatusPasaima Selby MDLAB BLOOD ORDERABLES Final ResultPerforming OrganizationAddressCity/State/ZIP CodePhone Number [address] [address], from Last 3 Months Insurance Care Teams Team MemberRelationshipSpecialtyStart DateEnd Date No P[place], [place] [id number] [facility] - [facility]/18/25
--- OUTSIDE RECORDS SUMMARY | 2025-03-26 16:02 | XMS_ITS | Encounter Summary ---
Author Organization [facility] Address [address] [facility] [place] [address] Care Team Providers Care Ref[employer]igerated [employer] Driver Name Role Phone Radha Camacho DO Unavailable [phone] Trinity Hansen DO Primary Care Provider [phone] Encounter Details DateTypeDepartmentCare Team (Latest Contact Info)Wqcictkurci52/25/2025Bamboo flowsheet [facility] [address] [place] [address] Trinity Palmer PA [address] [place], [facility] Social History Tobacco UseTypesPacks/DayYears UsedDateSmoking Tobacco: NeverSmokeless Tobacco: NeverAlcohol UseStandard Drinks/WeekCommentsNever0 (1 standard drink = 0.6 oz pure alcohol)caffeine intake: 1-2 cups per dayCommentsUnknownSex and Gender InformationValueDate RecordedSex Assigned at BirthNot on fileLegal Sex Xaasmh5307/14/2022 6:39 PM EDTGender IdentityNot on fileSexual OrientationNot on filedocumented as of this encounter Plan of Treatment DateTypeDepartmentCare Team (Latest Contact Info)Azlhyxvsitj13/01/2026 10:00 AM ESTProcedure Visit [facility] [address] [facility] [place] [address] Trinity Palmer PA [address] [place] [address] [place] [address] documented as of this encounter Visit Diagnoses Not on filedocumented in this encounter Care Teams Team MemberRelationshipSpecialtyStart DateEnd Date Trinity Hansen DO [address] [facility] [id number] PCP - GeneralFamily Medicine07/21/23 Radha Camacho DO [address] [place] [address] Referring PhysicianNeurology07/19/23documented as of this encounter
--- OUTSIDE RECORDS SUMMARY | 2025-03-26 16:02 | XMS_ITS | Encounter Summary ---
Author Organization [facility] Address [address] [facility] [place] [address] Care Team Providers Care Finished Garment Inspector Name Role Phone Radha Camacho DO Unavailable [phone] Trinity Hansen DO Primary Care Provider [phone] Encounter Details DateTypeDepartmentCare Team (Latest Contact Info)Sfbkwcawgln36/25/2025Travel Social History Tobacco UseTypesPacks/DayYears UsedDateSmoking Tobacco: NeverSmokeless Tobacco: NeverAlcohol UseStandard Drinks/WeekCommentsNever0 (1 standard drink = 0.6 oz pure alcohol)caffeine intake: 1-2 cups per dayCommentsUnknownSex and Gender InformationValueDate RecordedSex Assigned at BirthNot on fileLegal Sex Povzeb4507/14/2022 6:39 PM EDTGender IdentityNot on fileSexual OrientationNot on filedocumented as of this encounter Plan of Treatment DateTypeDepartmentCare Team (Latest Contact Info)Hzcdimmetof55/01/2026 10:00 AM ESTProcedure Visit [facility] [address] [facility] [place] [address] Trinity Palmer PA [address] [address] [place], [facility] documented as of this encounter Visit Diagnoses Not on filedocumented in this encounter Care Teams Team MemberRelationshipSpecialtyStart DateEnd Date Trinity Hansen DO [address] [place] [id number] PCP - GeneralFamily Medicine07/21/23 Radha Camacho DO [address] [place] [address] Referring PhysicianNeurology07/19/23documented as of this encounter
--- OUTSIDE RECORDS SUMMARY | 2025-03-26 16:02 | XMS_ITS | Patient Health Record ---
Author Organization [facility] es Address [address] [place] [address] Care Team Providers Care As400 Administrator Name Role Phone Paula Ewing Primary Care Provider ZulemaYanique mantillaissa Unavailable [phone] GUICHO MONTEIRO Unavailable Unavailable Allergies No Known Allergies Reason For Referral Reason 05/16 Attempt, lvmsg counseling referral from Dr. Monteiro for worsening anxiety, depression and mood swings. Diagnosis 1 Encounter for screen ing examination for mental health and behavioral disorders (Z13.30) Referral Organization Referrals Referring Provider First Name GUICHO Referring Provider Last Name CAYETANO Referring Provider Speciality Family Med icine Referred Organization [facility] Referred Address [address] [place] [place], [place],[address], Referred Provider Specialty Talk Ther apy Referral Priority Routine Medications Medication SIG (Take, Route, Frequency, Duration) Notes Start Date End Date Status hydrOXYzine HCl 25 MG Tablet 1 or 2 tabl ets three times a day as needed for anxiety Orally Once a day; Duration: 30 days 5ActiveEscitalopram Oxalate 5 MG Tablet1 tablet Oral Once a day; Duration: 30 daysActiveWellbutrin XL 300 MG Tablet Extended Release 24 Hour1 tablet in the morning Orally Once a day; Duration: 30 days5Active Omeprazole 20 MG Capsule Delayed ReleaseTAKE 1 CAPSULE BY MOUTH once DAILY before a meal Oral; Duration: 14 DaysActivePromethazine HCl 12.5 MG TabletTAKE 1 TABLET BY MOUTH EVERY 6 HOURS NEEDED FOR NAUSEA AND VOMITING - - do not exceed FOUR tablets in 24 hours Oral; Duration: 5 DaysActiveMontelukast Sodium 10 MG Tablet1 tablet Oral; Duration: 30 daysPRNActiveCaplyta 21 MG Capsule1 capsules Orally Once a day; Duration: 30 days12/03/2024Not-Taking/PRNFluticasone Propionate 50 MCG/ACT SuspensionNasal; Duration: 30 DaysPRNActiveOLANZapine 5 MG Tablettake one tablet every day for 5 days and then every other day until complete Orally Once a day; Duration: 9 days10/19/2024Not-Taking/PRNMirena (52 MG) 20 MCG/DAY Intrauterine Deviceas directed Yhorfpzznbzx95/19/25ActiveVraylar 3 MG Capsule1 capsule Orally Once a day; Duration: 30 daysif pt calls for more samples please give 2 boxes of 3 mg hetwxcu5810/19/2024Not-Taking/PRNlamoTRIgine 100 MG Tablettake 1 tablet for 3 days and then 1/2 tablet until complete Orally Once a day; Duration: 7 days07/04/2024Not-Taking/PRNLinzess 145 MCG CapsuleTAKE 1 CAPSULE BY MOUTH EVERY DAY. Oral; Duration: 30 DaysActiveVraylar 1.5 MG Capsule1 capsule Orally Once a day; Duration: 30 days10/19/2024Not-Taking/PRN Social History Tobacco Use: Social History Observation Description Date Details (start date - stop date) Never Smoker NA - NA Sex Assigned At : Social History Observation Description Sex Assigned At Female Social History GeneralSocial InfoQuestionAnswerNotesDepression Screening (PHQ-9):Little interest or pleasure in doing thingsMore than half the daysFeeling down, depressed, or hopelessMore than half the daysTrouble falling or staying asleep, or sleeping too muchSeveral daysFeeling tired or having little energySeveral daysPoor appetite or overeatingNot at allFeeling bad about yourself-or that you are a failure or have let yourself or your family downNot at allTrouble concentrating on things, such as reading the newspaper or watching televisionNot at allMoving or speaking so slowly that other people could have noticed. Or the opposite being so fidgetyor restless that you have been moving around a lot more than usualNot at allThoughts that you would be better off , or of hurting yourself in some wayNot at allTotal Lozsf5OlprwjnuhtaceTlok DepressionSubstance abuse/mental health issues of patient/familyPatient -DeniesDrug/Alcohol:Social InfoQuestionAnswerNotesAUDIT-C (Standard)Did you have a drink containing alcohol in the past year?KwQvketg2QvnwcunimhdfqbXotnrzmvJixzewp Use:Social InfoQuestion AnswerNotesTobacco Control (Standard)Tobacco use:Nonsmoker Problems Problem Type SNOMED Code ICD Code Onset Dates Problem Status W/U Status Risk Notes Problem Posttraumatic stress disorder (72443835) PTSD (post-traumatic stress disorder) (F43.10) ActiveconfirmedProblemEpisodic mood disorder (13991895508247)Episodic mood disorder (F39)ActiveconfirmedProblemObsessive-compulsive disorder (245487134) Obsessive-compulsive disorder, unspecified type (F42.9)ActiveconfirmedProblem Generalized anxiety disorder (12127616)Generalized anxiety disorder (F41.1) ActiveconfirmedProblemAttention deficit hyperactivity disorder, predominantly inattentive type (49984691)ADHD (attention deficit hyperactivity disorder), 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 Vital Signs Heart Rate 91 /min 12/17/2024 Ujjtltroajn43.3 degrees Ypbkozcnnx69/20/1792Sooncajn03 %12/17/2024lood pressure pbooykysn70 mm Hg12/17/20246989Dlkiij63 in12/17/2024lood pressure lpvsuqlp128 mm Hg 12/17/20245825Jsvaxy799 lbs12/17/2024BMI31.7 kg/m212/17/2024 Encounters Encounter Location Date Provider Diagnosis [facility] [address] [place] [address] 10/19/2024 Paula Slingwine Episodic mood disorder [facility] [address] [place] [address] 10/19/2024 Paula Slingwine Episodic mood disorder [address] [place] [address] 10/25/2024 Paula Slingwine Episodic mood disorder [address] [place] [address] 01/28/2025 [facility] [place] [address]/ Paula SlingwineGeneralized anxiety disorder F41.1 and Episodic mood disorder F39 [facility] [id number] [facility] [place] [address]/Melissa Hollada Generalized anxiety disorder F41.1 and Episodic mood disorder F39[facility] [id number] [facility] [place] [address]/Melissa HolladaGeneralized anxiety disorder F41.1[facility] [id number] [facility] [place] [address]/heri SlingwineGeneralized anxiety disorder F41.1 ; PTSD (post-traumatic stress disorder) F43.10 ; Obsessive-compulsive disorder, unspecified type F42.9 ; Episodic mood disorder F39 and ADHD (attention deficit hyperactivity disorder), inattentive type F90.0[facility] [id number] [facility] [place] [address] 07/25/2024heri SlingwineEpisodic mood disorder F39 ; Generalized anxiety disorder F41.1 ; PTSD (post-traumatic stress disorder) F43.10 ; Obsessive- compulsive disorder, unspecified type F42.9 and ADHD (attention deficit hyper activity disorder), inattentive type F90.0[facility] [id number] [facility] [place] [address]/heri SlingwineGeneralized anxiety disorder F41.1 ; Obsessive-compulsive disorder, unspecified type F42.9 ; Episodic mood disorder F39 ; ADHD (attention deficit hyperactivity disorder), inattentive type F90.0 and PTSD (post-traumatic stress disorder) F43.10[facility] [id number] [facility] [place] [address]/heri SlingwineGeneralized anxiety disorder F41.1 ; PTSD (post-traumatic stress disorder) F43.10 ; Obsessive-compulsive disorder, unspecified type F42.9 ; Episodic mood disorder F39 and ADHD (attention deficit hyperactivity disorder), inattentive type F90.0[facility] [id number] [place] [address]/5Cheri SlingwineGeneralized anxiety disorder F41.1 ; PTSD (post-traumatic stress disorder) F43.10 ; Obsessive-compul sive disorder, unspecified type F42.9 ; Episodic mood disorder F39 and ADHD (attention deficit hyperactivity disorder), inattentive type F90.0[facility] [address] [place] [address]/5Cheri Slingwine Generalized anxiety disorder F41.1 ; PTSD (post-traumatic stress disorder) F43.10 ; Obsessive-compulsive disorder, unspecified type F42.9 ; ADHD (attention deficit hyperactivity disorder), inattentive type F90.0 and Episodic mood disorder F39[facility] [address] [address]/5Cheri SlingwineGeneralized anxiety disorder F41.1 ; PTSD (post-traumatic stress disorder) F43.10 ; Obsessive-compulsive disorder, unspecified type F42.9 ; Episodic mood disorder F39 and ADHD (attention deficit hyperactivity disorder), inattentive type F90.0[facility] [id number] [place] [address] 5Cheri SlingwineGeneralized anxiety disorder F41.1 ; PTSD (post- traumatic stress disorder) F43.10 ; Obsessive-compulsive disorder, unspecified type F42.9 ; Episodic mood disorder F39 and ADHD (attention deficit hyper activity disorder), inattentive type F90.0 Assessments Encounter Date Diagnosis (ICD Code) Assessment Notes Treatment Notes Treatment Clinical Notes Section Notes 07/04/2024 PTSD (post-traumatic stress diso rder) (ICD-10 - F43.10) 07/04/2024Generalized anxiety disorder (ICD-10 - F41.1)07/25/2024Episodic mood disorder (ICD-10 - F39) Lamictal: Patient educated on dosing schedule of medication. Made aware to make prescriber aware ofany unexplainable rash or flu-like symptoms. If outside of office hours patient should report to the ER. Made aware to contact the office with any questions or concerns. Provided crisis hotline number. Patient states has good support system. Will call office or report to the ER with suicidal ideations. Patient educated on new antipsychotic dosing schedule and side effects. Made aware to not abruptly stop the medication. Made aware to notify the office or go to the ER if experience any abnormal repetitive movements. Also, made aware to notify office of any nausea, vomiting, or dizziness. Made aware to not stop medication abruptly. This is an FDA approved use for this medication. Discussed with patient crisis plan. Provided crisis hotline number. States has good support system.Made aware to contact office if has an increase in suicidal thoughts. If outside of office hours, patient to go to the ER. Patient will call the office with any questions or concerns. 07/25/2024Generalized anxiety disorder (ICD-10 - F41.1)08/06/2024Generalized anxiety disorder (ICD-10 - F41.1)08/14/2024Generalized anxiety disorder (ICD-10 - F41.1)08/29/2024Generalized anxiety disorder (ICD-10 - F41.1)propranolol Encouraged to call office or report to the if the patient experiences dizziness or yitllloiifaeqmk83/23/2025Generalized anxiety disorder (ICD-10 - F41.1) 10/19/2024Episodic mood disorder (ICD-10 - F39)10/19/2024Episodic mood disorder (ICD-10 - F39)10/25/2024Episodic mood disorder (ICD-10 - F39)10/19/2024 Generalized anxiety disorder (ICD-10 - F41.1)12/03/2024Generalized anxiety disorder (ICD-10 - F41.1) Patient educated on antipsychotic dosing schedule and side effects. Made aware to not abruptly stopthe medication. Made aware to notify the office or go to the ER if experience any abnormal repetitive movements. Also, made aware to notify office of any nausea, vomiting, or dizziness. Made aware tonot stop medication abruptly. This is an FDA approved use for this medication. Discussed with patient crisis plan. Provided crisis hotline number. States has good support system.Made aware to contact office if has an increase in suicidal thoughts. If outside of office hours, patient to go to the ER. Patient will call the office with any questions or concerns. 12/17/2024Generalized anxiety disorder (ICD-10 - F41.1) Recommended treatment is: _ FDA approved medication for this age group include Selective Serotonin Reuptake Inhibitors (SSRI) and Selective Norepinephrine Reuptake Inhibitors (SNRI). . Selective serotonin reuptake inhibitors? can cause nausea, headache, upset stomach, diarrhea, constipation, anxiety, irritability, and sexual dysfunction. . Please monitor for worsening of symptoms, especially suicidal ideations or morbid thoughts, and call office and or go to the emergency department immediately. Pt does not endorse exhibiting symptoms aligning with ty. . The patient verbalizes understanding with all questions answered thoroughly and is in agreement with treatment plan. . Continue current treatment plan Patient/Guardian will call sooner if symptoms worsen. Patient understands to go to ER if needed if symptoms become severe. Crisis Intervention plan was discussed and agreed upon. Patient/Guardian will call 911 in case of emergency. Emergency contact information was provided to the patient/guardian. Hydroxyzine: Made aware that the med will cause sedation, dry mouth, and urinary retention. Do not take before driving a car until you know how the med will affect you. Do not take the medication if . Do not take with other [employer] depressants. Call 911 for difficulty breathing. 12/20/2024Generalized anxiety disorder (ICD-10 - F41.1)02/11/2025Generalized anxiety disorder (ICD-10 - F41.1)02/11/2025Episodic mood disorder (ICD-10 - F39) 12/17/2024PTSD (post-traumatic stress disorder) (ICD-10 - F43.10)12/03/2024PTSD (post-traumatic stress disorder) (ICD-10 - F43.10)10/19/2024PTSD (post-traumatic stress disorder) (ICD-10 - F43.10)09/21/2024PTSD (post-traumatic stress disorder) (ICD-10 - F43.10)08/14/2024Episodic mood disorder (ICD-10 - F39) 08/29/2024PTSD (post-traumatic stress disorder) (ICD-10 - F43.10)08/06/2024 Obsessive-compulsive disorder, unspecified type (ICD-10 - F42.9)07/04/2024 Obsessive-compulsive disorder, unspecified type (ICD-10 - F42.9)07/25/2024PTSD (post-traumatic stress disorder) (ICD-10 - F43.10)07/25/2024Obsessive-compulsive disorder, unspecified type (ICD-10 - F42.9)07/04/2024Episodic mood disorder (ICD-10 - F39) Lamictal: Patient educated on dosing schedule of medication. Made aware to make prescriber aware ofany unexplainable rash or flu-like symptoms. If outside of office hours patient should report to the ER. Made aware to contact the office with any questions or concerns. Provided crisis hotline number. Patient states has good support system. Will call office or report to the ER with suicidal ideations. Patient educated on new antipsychotic dosing schedule and side effects. Made aware to not abruptly stop the medication. Made aware to notify the office or go to the ER if experience any abnormal repetitive movements. Also, made aware to notify office of any nausea, vomiting, or dizziness. Made aware to not stop medication abruptly. This is an FDA approved use for this medication. Discussed with patient crisis plan. Provided crisis hotline number. States has good support system.Made aware to contact office if has an increase in suicidal thoughts. If outside of office hours, patient to go to the ER. Patient will call the office with any questions or concerns. 08/06/2024Episodic mood disorder (ICD-10 - F39) Educated on antidepressant. Made aware of Black Box Warning that it can increase suicidal thoughts,especially in minors. If this happens go to the ER. Make the office aware or go to the ER, if you experience seizures or an increase in activity and irritability. Made aware to not abruptly stop medication. Medication can cause headache and nausea. . Denies suicidal or homicidal ideation or plan. No morbid thoughts. Interpersonal issues discussed. Support provided Insight oriented/ Behavior modifying/ Supportive therapy Patient educated on antipsychotic dosing schedule and side effects. Made aware to not abruptly stopthe medication. Made aware to notify the office or go to the ER if experience any abnormal repetitive movements. Also, made aware to notify office of any nausea, vomiting, or dizziness. Made aware tonot stop medication abruptly. This is an FDA approved use for this medication. Discussed with patient crisis plan. Provided crisis hotline number. States has good support system.Made aware to contact office if has an increase in suicidal thoughts. If outside of office hours, patient to go to the ER. Patient will call the office with any questions or concerns. Patient educated about the importance of adequate sleep to your mental health. The bedroom should be kept dark to promote restful sleep. The patient should not use their phone or watch TV while in bed, these behaviors can be stimulating and keep the patient awake. . Lamictal: Patient educated on dosing schedule of medication. Made aware to make prescriber aware of any unexplainable rash or flu-like symptoms. If outside of office hours patient should report to the ER. Made aware to contact the office with any questions or concerns. Provided crisis hotline number. Patient states has good support system. Will call office or report to the ER with suicidal ideations. . Informed consent obtained: YES, we discussed the diagnosis/diagnoses, the treatment options, treatment(s) recommended vs. no treatment. We discussed risks and benefits of treatment options, treatmentrecommendations vs. no treatment. . . Pt is to continue current treatment plan Has good tolerability and compliance with medication Call for problems All questions and concerns discussed . 08/29/2024Obsessive-compulsive disorder, unspecified type (ICD-10 - F42.9) 09/21/2024Obsessive-compulsive disorder, unspecified type (ICD-10 - F42.9) 10/19/2024Obsessive-compulsive disorder, unspecified type (ICD-10 - F42.9) 12/03/2024Obsessive-compulsive disorder, unspecified type (ICD-10 - F42.9) 12/17/2024Obsessive-compulsive disorder, unspecified type (ICD-10 - F42.9) 12/17/2024Episodic mood disorder (ICD-10 - F39) Educated on antidepressant. Made aware of Black Box Warning that it can increase suicidal thoughts,especially in minors. If this happens go to the ER. Make the office aware or go to the ER, if you experience seizures or an increase in activity and irritability. Made aware to not abruptly stop medication. Medication can cause headache and nausea. . Denies suicidal or homicidal ideation or plan. No morbid thoughts. Interpersonal issues discussed. Support provided Insight oriented/ Behavior modifying/ Supportive therapy . Informed consent obtained: YES, we discussed the diagnosis/diagnoses, the treatment options, treatment(s) recommended vs. no treatment. We discussed risks and benefits of treatment options, treatmentrecommendations vs. no treatment. . . . Pt is to continue current treatment plan Has good tolerability and compliance with medication Call for problems All questions and concerns discussed . 10/19/2024DHD (attention deficit hyperactivity disorder), inattentive type (ICD-10 - F90.0)12/03/2024Episodic mood disorder (ICD-10 - F39) Educated on antidepressant. Made aware of Black Box Warning that it can increase suicidal thoughts,especially in minors. If this happens go to the ER. Make the office aware or go to the ER, if you experience seizures or an increase in activity and irritability. Made aware to not abruptly stop medication. Medication can cause headache and nausea. . Denies suicidal or homicidal ideation or plan. No morbid thoughts. Interpersonal issues discussed. Support provided Insight oriented/ Behavior modifying/ Supportive therapy . Informed consent obtained: YES, we discussed the diagnosis/diagnoses, the treatment options, treatment(s) recommended vs. no treatment. We discussed risks and benefits of treatment options, treatmentrecommendations vs. no treatment. . . . Pt is to continue current treatment plan Has good tolerability and compliance with medication Call for problems All questions and concerns discussed . 09/21/2024Episodic mood disorder (ICD-10 - F39) Patient educated on antipsychotic dosing schedule and side effects. Made aware to not abruptly stopthe medication. Made aware to notify the office or go to the ER if experience any abnormal repetitive movements. Also, made aware to notify office of any nausea, vomiting, or dizziness. Made aware tonot stop medication abruptly. This is an FDA approved use for this medication. Discussed with patient crisis plan. Provided crisis hotline number. [facility] has good support system.Made aware to contact office if has an increase in suicidal thoughts. If outside of office hours, patient to go to the ER. Patient will call the office with any questions or concerns. Lamictal: Patient educated on dosing schedule of medication. Made aware to make prescriber aware ofany unexplainable rash or flu-like symptoms. If outside of office hours patient should report to the ER. Made aware to contact the office with any questions or concerns. Provided crisis hotline number. Patient states has good support system. Will call office or report to the ER with suicidal ideations. Educated on antidepressant. Made aware of Black Box Warning that it can increase suicidal thoughts,especially in minors. If this happens go to the ER. Make the office aware or go to the ER, if you experience seizures or an increase in activity and irritability. Made aware to not abruptly stop medication. Medication can cause headache and nausea. . Denies suicidal or homicidal ideation or plan. No morbid thoughts. Interpersonal issues discussed. Support provided Insight oriented/ Behavior modifying/ Supportive therapy . Informed consent obtained: YES, we discussed the diagnosis/diagnoses, the treatment options, treatment(s) recommended vs. no treatment. We discussed risks and benefits of treatment options, treatmentrecommendations vs. no treatment. . . . Pt is to continue current treatment plan Has good tolerability and compliance with medication Call for problems All questions and concerns discussed . 5ADHD (attention deficit hyperactivity disorder), inattentive type (ICD-10 - F90.0) . FDA approved stimulant medication for this age group. Discussed/Denies adverse effects from medication including HTN, tachycardia, insomnia, irritability, headache, or decreased appetite. . All relevant and serious adverse effects were discussed. Standard precautions and potential benefits were discussed. Patient/Guardian consented to begin medication/ continue treatment plan . Patient continues to meet criteria for attention deficit hyperactivity disorder. Pt does not meet criteria for bipolar disorder, major depressive disorder, or other persistent mood disorders. Will continue to monitor the patient for presentation of new symptoms or behaviors. . Continue current treatment; tolerating meds well, compliant; call for problems; questions answered satisfactorily, agreeable to treatment plan . GOALS: . Maintain medication regimen _Improve social and interpersonal functioning _Improve attention and or hyperactivity . . Crisis Intervention plan was discussed and agreed upon. Patient/Guardian will call 911 in case of emergency. Emergency contact information was provided to the patient/guardian. . OARRS reviewed . . Informed consent obtained: YES, we discussed the diagnosis/diagnoses, the treatment options, treatment(s) recommended vs. no treatment. We discussed risks and benefits of treatment options, treatmentrecommendations vs. no treatment. . . Pt is to continue current treatment plan Has good tolerability and compliance with medication Call for problems All questions and concerns discussed . 08/29/2024Episodic mood disorder (ICD-10 - F39) Lamictal: Patient educated on dosing schedule of medication. Made aware to make prescriber aware ofany unexplainable rash or flu-like symptoms. If outside of office hours patient should report to the ER. Made aware to contact the office with any questions or concerns. Provided crisis hotline number. Patient states has good support system. Will call office or report to the ER with suicidal ideations. Patient educated on antipsychotic dosing schedule and side effects. Made aware to not abruptly stopthe medication. Made aware to notify the office or go to the ER if experience any abnormal repetitive movements. Also, made aware to notify office of any nausea, vomiting, or dizziness. Made aware tonot stop medication abruptly. This is an FDA approved use for this medication. Discussed with patient crisis plan. Provided crisis hotline number. States has good support system.Made aware to contact office if has an increase in suicidal thoughts. If outside of office hours, patient to go to the ER. Patient will call the office with any questions or concerns. Educated on antidepressant. Made aware of Black Box Warning that it can increase suicidal thoughts,especially in minors. If this happens go to the ER. Make the office aware or go to the ER, if you experience seizures or an increase in activity and irritability. Made aware to not abruptly stop medication. Medication can cause headache and nausea. . Denies suicidal or homicidal ideation or plan. No morbid thoughts. Interpersonal issues discussed. Support provided Insight oriented/ Behavior modifying/ Supportive therapy . Informed consent obtained: YES, we discussed the diagnosis/diagnoses, the treatment options, treatment(s) recommended vs. no treatment. We discussed risks and benefits of treatment options, treatmentrecommendations vs. no treatment. . . . Pt is to continue current treatment plan Has good tolerability and compliance with medication Call for problems All questions and concerns discussed . 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 FDA approved stimulant medication for this age group. Discussed/Denies adverse effects from medication including HTN, tachycardia, insomnia, irritability, headache, or decreased appetite. . All relevant and serious adverse effects were discussed. Standard precautions and potential benefits were discussed. Patient/Guardian consented to begin medication/ continue treatment plan . Patient continues to meet criteria for attention deficit hyperactivity disorder. Pt does not meet criteria for bipolar disorder, major depressive disorder, or other persistent mood disorders. Will continue to monitor the patient for presentation of new symptoms or behaviors. . Continue current treatment; tolerating meds well, compliant; call for problems; questions answered satisfactorily, agreeable to treatment plan . GOALS: . Maintain medication regimen _Improve social and interpersonal functioning _Improve attention and or hyperactivity . . Crisis Intervention plan was discussed and agreed upon. Patient/Guardian will call 911 in case of emergency. Emergency contact information was provided to the patient/guardian. . OARRS reviewed . Informed consent obtained: YES, we discussed the diagnosis/diagnoses, the treatment options, treatment(s) recommended vs. no treatment. We discussed risks and benefits of treatment options, treatmentrecommendations vs. no treatment. .. . Pt is to continue current treatment plan Has good tolerability and compliance with medication Call for problems All questions and concerns discussed . 08/06/2024PTSD (post-traumatic stress disorder) (ICD-10 - F43.10)09/21/2024DHD (attention deficit hyperactivity disorder), inattentive type (ICD-10 - F90.0) 08/29/2024DHD (attention deficit hyperactivity disorder), inattentive type (ICD-10 - F90.0)10/19/2024Episodic mood disorder (ICD-10 - F39) Educated on antidepressant. Made aware of Black Box Warning that it can increase suicidal thoughts,especially in minors. If this happens go to the ER. Make the office aware or go to the ER, if you experience seizures or an increase in activity and irritability. Made aware to not abruptly stop medication. Medication can cause headache and nausea. . Denies suicidal or homicidal ideation or plan. No morbid thoughts. Interpersonal issues discussed. Support provided Insight oriented/ Behavior modifying/ Supportive therapy Patient educated on antipsychotic dosing schedule and side effects. Made aware to not abruptly stopthe medication. Made aware to notify the office or go to the ER if experience any abnormal repetitive movements. Also, made aware to notify office of any nausea, vomiting, or dizziness. Made aware tonot stop medication abruptly. This is an FDA approved use for this medication. Discussed with patient crisis plan. Provided crisis hotline number. States has good support system.Made aware to contact office if has an increase in suicidal thoughts. If outside of office hours, patient to go to the ER. Patient will call the office with any questions or concerns. Lamictal: Patient educated on dosing schedule of medication. Made aware to make prescriber aware ofany unexplainable rash or flu-like symptoms. If outside of office hours patient should report to the ER. Made aware to contact the office with any questions or concerns. Provided crisis hotline number. Patient states has good support system. Will call office or report to the ER with suicidal ideations. . . Informed consent obtained: YES, we discussed the diagnosis/diagnoses, the treatment options, treatment(s) recommended vs. no treatment. We discussed risks and benefits of treatment options, treatmentrecommendations vs. no treatment. . . Pt is to continue current treatment plan Has good tolerability and compliance with medication Call for problems All questions and concerns discussed . 12/03/2024DHD (attention deficit hyperactivity disorder), inattentive type (ICD-10 - F90.0)12/17/2024DHD (attention deficit hyperactivity disorder), inattentive type (ICD-10 - F90.0) Plan Of Treatment No Information Insurance Providers Payer Name Payer Address Payer Phone Subscriber Number Group Number Insured Name Patient Relationship to Insured Coverage Start Date Coverage End Date [employer] [address] [place] [address] [id number] ASHA MCNALLYISONSelf - patient is the [id number] 2024[facility] [address] [place] [id number], ALLISONSelf - patient is the [id number] 2024 [facility] [address] [place] [id number], ALLISONSelf - patient is the [id number] 2024[facility] MedicaidPO [address] [place] [address] [phone], ALLISONSelf - patient is the [id number] 2024 Medical (General) History Medical History History ICD Code anxiety ADHDdepressionraynauds syndromepcosSurgical History Surgery Date(Month/Year) tonsillectomy dentalcellulitisHospitalization History Reason Date(Month/Year) [address] 11/2024 Susan Sheridan- see surgery above
--- OUTSIDE RECORDS SUMMARY | 2025-03-26 16:02 | XMS_ITS | Clinical Summary ---
Author Organization [facility] Address [address], [address] [place] [address] Care Team Providers Care Director Of Property Management Name Role Phone Trinity Hansen DO Primary Care Provider [phone] Allergies Active AllergyReactionsCriticalityNoted DateCommentsAdhesive TapeItching 04/15/2022 Medications MedicationSigDispense QuantityRefillsLast FilledStart DateEnd DateStatus buPROPion (WELLBUTRIN XL) 300 MG extended release tablet Take 1 tablet by mouth daily5Active levonorgestrel (MIRENA) IUD 52 mg 1 each by IntraUTERine route onceActive ibuprofen (ADVIL;MOTRIN) 400 MG tablet Take 1 tablet by mouth every 6 hours as needed for Pain or Fever5Active Active Problems ProblemNoted DateDiagnosed DateCellulitis of left lower unrekdyuu19/13/2025Left leg egfpsdnuqt24/13/2025 Encounters DateTypeDepartmentCare LoawPpjbpdshczm56/22/2025 11:44 AM EDT - 01/21/2025 1:[facility] [address] [place] [address] Kevin Blackmon MD Sprain of left great toe, initial encounter (Primary Dx); Sprain of finger, unspecified finger, initial encounter Discharge Disposition: Home or Self Care01/21/2025Travelfrom Last 3 Months Social History Tobacco UseTypesPacks/DayYears UsedDateSmoking Tobacco: NeverSmokeless Tobacco: Never Tobacco Cessation:Counseling Given: Not Answered Alcohol UseStandard Drinks/WeekCommentsNot Currently0 (1 standard drink = 0.6 oz pure alcohol)[facility] UtilitiesAnswerDate RecordedIn the past 12 months has the electric, gas, oil, or water company threatened to shut off services in your home?No11/11/2024UDIT-CAnswerDate RecordedQ1: How often do you have a drink containing alcohol?Never11/11/2024Q2: How many drinks containing alcohol do you have on a typical day when you are drinking?Patient does not drink11/11/2024Q3: How often do you have six or more drinks on one occasion?Never11/11/2024Hunger Vital SignAnswerDate RecordedWithin the past 12 months, you worried that your food would run out before you got the money to buymore.Never true11/11/2024 Within the past 12 months, the food you bought just didn't last and you didn't have money to get more.Never true11/11/2024PRAPARE - TransportationAnswerDate RecordedIn the past 12 months, has lack of transportation kept you from medical appointments or from getting medications?Yes11/11/2024In the past 12 months, has lack of transportation kept you from meetings, work, or from getting things needed for daily living?No11/11/2024Housing Stability Vital SignAnswerDate RecordedIn the last 12 months, was there a time when you were not able to pay the mortgage or rent on time?No11/11/2024In the past 12 months, how many times have you moved where you were living?t any time in the past 12 months, were you homeless or living in a correction (including now)?No11/11/2024 AUDIT-CAnswerDate RecordedQ1: How often do you have a drink containing alcohol? Never01/21/2025Q2: How many drinks containing alcohol do you have on a typical day when you are drinking?Patient does not drink01/21/2025Q3: How often do you have six or more drinks on one occasion?Never01/21/2025Food InsecurityAnswerDate RecordedWithin the past 12 months, you worried that your food would run out before you got the money to buymore.107/13/2025Within the past 12 months, the food you bought just didn't last and you didn't have money to get more.1 11/11/2024Interpersonal Safety Domain Source: IP Abuse ScreeningAnswerDate RecordedPhysical ozqrfVpxyld19/22/2025Verbal khatpOeomka57/22/2025Emotional rcpqkGfyyxb97/22/2025Financial aqxebXmjuqr75/22/2025Sexual zdhqzIlrywq85/22/2025 CommentsNoSex and Gender InformationValueDate RecordedSex Assigned at BirthNot on fileLegal YurKxeffn33/10/2013 3:32 PM ESTGender IdentityNot on file Sexual OrientationNot on file Last Filed Vital Signs Vital SignReadingTime TakenCommentsBlood Kbmaxcdj927/8201/21/2025 1:43 PM EDT Exjdw258901/21/2025 1:43 PM OPMPszeshbrhvh84.7 ??C (98 ??F)01/21/2025 11:49 AM EDT Respiratory Wycu7145 1:43 PM EDTOxygen Vmbeobifte46%01/21/2025 1:43 PM EDTInhaled Oxygen Concentration--Tcctsy00.3 kg (188 lb)01/21/2025 11:49 AM EDT Anilpg129 cm (5' 3 )01/21/2025 11:49 AM EDTBody Mass Index33.309 11:49 AM EDT Plan of Treatment Health MaintenanceDue DateLast DoneCommentsDepression Meuapq1012/01/2014HIV screen 2017HPV vaccine (1 - 3-dose series)2017Chlamydia/GC spwvqr7512/01/2018 Meningococcal B vaccine (1 of 2 - Standard)2018Hepatitis C screen 1Pap smear12/02/2023Flu vaccine (#1), 03/31/2005 COVID-19 Vaccine ( - season)2024DTaP/Tdap/Td vaccine (7 - Td or Tdap)/, 09/24/2008, 03/11/2004, Additional history exists Hepatitis B wypmfilJbkyerjeq75/09/2004, 05/14/2003, 02/12/2003, Additional history existsPneumococcal 0-49 years VaccineAged Out12/11/2003, 10/10/2003, 05/14/2003, Additional history existsNo longer eligible based on patient's age to complete this topicHib teygnemZifkkxjcy63/10/2004, 07/09/2003, 05/14/2003, Additional history existsPolio tkbcbgbWhyetlsrj57/26/2009, 07/09/2003, 05/14/2003, Additional history existsVaricella ybpevmiYsdvatens53/26/2009, 12/11/2003Hepatitis A tpfyzjhMqvcaaxqq98/22/2017, 12/15/2015Meningococcal (ACWY) pxzsiltDireumqsz81/27/2021, 12/15/2015 Procedures Procedure NamePriorityDate/TimeAssociated DiagnosisCommentsXR TOE LEFT (MIN 2 VIEWS)STAT01/21/2025 1:00 PM EDT XR WRIST LEFT (MIN 3 VIEWS)STAT01/21/2025 1:00 PM EDT XR HAND LEFT (MIN 3 VIEWS)STAT01/21/2025 12:59 PM EDT from Last 3 Months Results * XR TOE LEFT (MIN 2 VIEWS) (01/21/2025 1:00 PM EDT)Anatomical RegionLaterality ModalityAnkle, FootComputed RadiographySpecimen (Source)Anatomical Location / LateralityCollection Method / VolumeCollection TimeReceived Time01/21/2025 1:00 PM EDT Impressions 01/21/2025 1:22 PM EDT FINDINGS/IMPRESSION: Mild soft tissue swelling with no other acute changes. Narrative 01/21/2025 1:22 PM EDT EXAM: XR TOE LEFT (MIN 2 VIEWS) HISTORY: Fall, pain Left hallux. COMPARISON: None. Procedure Note Cedric Mendoza Jr., MD - 01/21/2025 EXAM: XR TOE LEFT (MIN 2 VIEWS) HISTORY: Fall, pain Left hallux. COMPARISON: None. IMPRESSION: FINDINGS/IMPRESSION: Mild soft tissue swelling with no other acute changes. Authorizing ProviderResult TypeResult [facility] HospitalKevin Blackmon [facility] DIAGNOSTIC IMAGING ORDERABLESFinal Result * XR WRIST LEFT (MIN 3 VIEWS) (01/21/2025 1:00 PM EDT)Anatomical Region LateralityModalityForearm, Wrist, HandComputed RadiographySpecimen (Source) Anatomical Location / LateralityCollection Method / VolumeCollection Time Received Time01/21/2025 1:00 PM EDT Impressions 01/21/2025 1:22 PM EDT FINDINGS/IMPRESSION: Normal scaphoid. Mild soft tissue swelling proximal phalanx third digit with underlying normal bone structure with no fracture, dislocation or opaque foreign body. Moderate degenerative change at the triscaphe joint and the wrist. Narrative 01/21/2025 1:22 PM EDT EXAM: XR HAND LEFT (MIN 3 VIEWS), XR WRIST LEFT (MIN 3 VIEWS) HISTORY: fall, left hand pain including snuffbox, 2+3rd MC + digits COMPARISON: None Procedure Note Cedric Mendoza Jr., MD - 01/21/2025 EXAM: XR HAND LEFT (MIN 3 VIEWS), XR WRIST LEFT (MIN 3 VIEWS) HISTORY: fall, left hand pain including snuffbox, 2+3rd MC + digits COMPARISON: None IMPRESSION: FINDINGS/IMPRESSION: Normal scaphoid. Mild soft tissue swelling proximal phalanx third digitwith underlying normal bone structure with no fracture, dislocation or opaque foreign body. Moderate degenerative change at the triscaphe joint and the wrist. Authorizing ProviderResult TypeResult Jewel Blackmon [facility] DIAGNOSTIC IMAGING ORDERABLESFinal Result * XR HAND LEFT (MIN 3 VIEWS) (01/21/2025 12:59 PM EDT)Anatomical Region LateralityModalityHand, WristComputed RadiographySpecimen (Source)Anatomical Location / LateralityCollection Method / VolumeCollection TimeReceived Time 01/21/2025 12:59 PM EDT Impressions 01/21/2025 1:22 PM EDT FINDINGS/IMPRESSION: Normal scaphoid. Mild soft tissue swelling proximal phalanx third digit with underlying normal bone structure with no fracture, dislocation or opaque foreign body. Moderate degenerative change at the triscaphe joint and the wrist. Narrative 01/21/2025 1:22 PM EDT EXAM: XR HAND LEFT (MIN 3 VIEWS), XR WRIST LEFT (MIN 3 VIEWS) HISTORY: fall, left hand pain including snuffbox, 2+3rd MC + digits COMPARISON: None Procedure Note Cedric Mendoza Jr., MD - 01/21/2025 EXAM: XR HAND LEFT (MIN 3 VIEWS), XR WRIST LEFT (MIN 3 VIEWS) HISTORY: fall, left hand pain including snuffbox, 2+3rd MC + digits COMPARISON: None IMPRESSION: FINDINGS/IMPRESSION: Normal scaphoid. Mild soft tissue swelling proximal phalanx third digitwith underlying normal bone structure with no fracture, dislocation or opaque foreign body. Moderate degenerative change at the triscaphe joint and the wrist. Authorizing ProviderResult TypeResult StatusChristopher Eleni [facility] DIAGNOSTIC IMAGING ORDERABLESFinal Result from Last [address] [id number] Advance Directives * Full Code (Latest Code Status on File) Date ActivatedDate InactivatedComments11/11/2024 10:03 AM11/12/2024 4:32 PM NameRelationshipHealthcare Agent RelationshipCommunicationJennifer hignettParent Primary Decision Maker* Care Teams Team MemberRelationshipSpecialtyStart DateEnd Date Trinity Hansen, [address] [facility] [place] [address] PCP - GeneralFamily Medicine05/04/22
--- OUTSIDE RECORDS SUMMARY | 2025-03-26 16:02 | XMS_ITS | Patient Health Record ---
Author Organization [facility] Address [address] [place] [address] Care Team Providers Care Shank Carrier Name Role Phone JOSI BREAUX Unavailable Unavailable Edy Khoury Unavailable [phone] Reason For Referral No Information Plan Of Treatment No Information Insurance Providers Payer Name Payer Address Payer Phone Subscriber Number Group Number Insured Name Patient Relationship to Insured Coverage Start Date Coverage End Date [employer] [address] [place] [address] [id number] VIVIAN MCNALLY Self - patient is the insured [place] [employer] [address] [place] [id number] VIVIAN MCNALLYSelf - patient is the [id number] 2025
--- OUTSIDE RECORDS SUMMARY | 2025-03-26 16:02 | XMS_ITS | Clinical Summary ---
Author Organization [facility] Address [address] [place] [id number] Care Team Providers Care Sales Account Director Name Role Phone Link, Flako Beasley DO Unavailable Allergies Active AllergyReactionsCriticalityNoted DateCommentsAdhesive Tape-Silicones Tiesxwh0204/15/2022 Medications MedicationSigDispense QuantityRefillsLast FilledStart DateEnd DateStatus ZYRTEC-D 5-120 mg per tablet Take 1 tablet by mouth twice daily.04/14/2022ctive montelukast (SINGULAIR) 10 mg tablet Take 10 mg by mouth once daily.Active fluticasone (FLONASE) 50 mcg/actuation nasal spray Use 2 Sprays in each nostril two times a day.Active spironolactone (ALDACTONE) 25 mg tablet Take 2 tablets by mouth two times a day. 360 tablet 5Active buPROPion XL (WELLBUTRIN XL) 300 mg 24 hr tablet 300 mg once daily.5Active levonorgestrel (MIRENA) 21 mcg/24hr (up to 8 yrs) 52 mg IUD as directed Kigahfzsjnlk41/18/2025Active cyclobenzaprine (FLEXERIL) 10 mg tablet Take 1 tablet by mouth once daily as needed. 30 tablet 5Active ibuprofen (MOTRIN) 600 mg tablet Take 1 tablet by mouth two times a day as needed (for pain.). 90 tablet 5Active Active Problems ProblemNoted DateDiagnosed DateAcanthosis dlyaztctb82/08/2025BMI 31.0-31.9,adult 06/13/2024Family history of diabetes hsbxmmov31/12/6455Gnvswbwua33/12/2025 Udrufitqpq38/12/2025PCOS (polycystic ovarian syndrome)06/13/2024Obesity, Class I, BMI 30-34.9006/12/2024 Encounters DateTypeDepartmentCare CujzCdrkbpegcat08/15/2025Results Follow-Up Pediatric Endocrinology [address] [place] [address] Kai Barragan MD, PhD 02/13/2025Patient Update Pediatric Endocrinology [address] [place] [address] Kai Barragan MD, PhD 01/28/2025Travelfrom Last 3 Months Immunizations ImmunizationAdministration DatesNext DueHaemophilus influenzae b (Hib PRP-T) vaccine, 4-dose series (ACTHIB, HIBERIX)03/11/2004,07/09/2003,05/14/2003, 02/12/2003diphtheria tetanus pertussis (DTaP) vaccine, pediatric (INFANRIX) 09/24/2008,03/11/2004,07/09/2003,05/14/2003,02/12/2003hepatitis A (HepA) vaccine, 2-dose series, ped/adol (HAVRIX-PEDS, VAQTA-PEDS)06/23/2016,12/15/2015 hepatitis B (HepB) vaccine, 3-dose series, age 0 yr - 19 yr (ENGERIX B-PEDS, RECOMBIVAX HB-PEDS)07/09/2003,05/14/2003,02/12/2003,2002influenza vaccine, whole virus04/30/2005,03/31/2005measles mumps rubella (MMR) vaccine (M-M-R II, PRIORIX)09/24/2008,12/11/2003meningococcal (MPSV4) vaccine, quadrivalent (MENOMUNE)12/15/2015meningococcal (MenACWY-D) vaccine, quadrivalent (MENACTRA) 1pneumococcal polysaccharide (PPV23) vaccine, 23 valent (PNEUMOVAX 23) 12/11/2003,10/10/2003,05/14/2003,02/12/2003poliovirus (OPV) vaccine, trivalent, live, oral (ORIMUNE)09/24/2008,07/09/2003,05/14/2003,02/12/2003tetanus diphtheria pertussis (Tdap) vaccine, age 7+ yr (ADACEL, BOOSTRIX)12/15/2015 varicella (FRANK) vaccine (VARIVAX)09/24/2008,12/11/2003 Social History Tobacco UseTypesPacks/DayYears UsedDateSmoking Tobacco: NeverSmokeless Tobacco: Never Tobacco Cessation:Counseling Given: Not Answered Alcohol UseStandard Drinks/WeekCommentsNever0 (1 standard drink = 0.6 oz pure alcohol)PHQ-2AnswerDate RecordedPHQ-2 xflvx894rea Deprivation Index AnswerDate RecordedNational Score (1-100), lower number is lower risk88 05/10/2024State Score (1-10), lower number is lower flnx46805/10/2024Data from: https://www.neighborhoodatlas.[facility]/. Last address used for [address] 05/10/2024CommentsNoSex and Gender Information ValueDate RecordedSex Assigned at BeoexBdzaqv10/25/2022 7:48 PM ESTLegal Sex Qfctuz2202/18/2022 12:07 PM EDTGender AnbonaotRnoqoh53/25/2022 7:48 PM ESTSexual OrientationNot on file Last Filed Vital Signs Vital SignReadingTime TakenCommentsBlood Imigxiqi362/7407 8:36 AM EDT Zbrzr934511/22/2024 8:36 AM RRZGekdinilpqd29.4 ??C (97.5 ??F)11/22/2024 8:36 AM EDTRespiratory Wdsy583006/12/2024 12:47 PM ESTOxygen Wejltqpusv04%11/06/2024 8:44 AM EDTInhaled Oxygen Concentration--Bogjvy12.8 kg (180 lb 5.4 oz)11/22/2024 8:36 AM ZKMNdmcyv603.5 cm (5' 3.58 )11/22/2024 8:36 AM EDTBody Mass Index31.36 11/22/2024 8:36 AM EDT Plan of Treatment DateTypeDepartmentCare Team (Latest Contact Info)Nwkkvyqtncv10/19/2026 10:40 AM EDTOffice Visit Rheumatology [address] [address] Tiffany Wright MD [address] [place] [address] 6M FUHealth MaintenanceDue DateLast DoneCommentsPeds To Adult Transition Initial Arjyhioheb99/02/2015Peds To Adult Transition Annual Uhwzdiualb35/02/2017HPV Vaccine (1 - 3-dose series)2017Meningococcal B Vaccine (1 of 2 - Standard) 2018Anxiety Jighdoarz46/02/2021hlamydia Screening (18-24)2020 Depression Xzvkgdnsw55/02/2021GC (Gonorrhea) Screening (18-24)2020HIV Krqggftoh73/02/2021ervical Cancer Shfyujqmn17/02/2024ovid-19 Vaccine ( - season)2024Influenza Vaccine (#1), 03/31/2005 DTaP,Tdap,Td Vaccine (7 - Td or Tdap), 09/24/2008, 03/11/2004, Additional history existsHepatitis B WjfdobmLmexjhytt04/09/2004, 05/14/2003, 02/12/2003, Additional history existsHepatitis C ScreeningCompleted 09/14/2023 Procedures Procedure NamePriorityDate/TimeAssociated DiagnosisCommentsCOMPREHENSIVE METABOLIC UOSPWFjflwkv10/30/2025 7:52 AM EDT Hirsutism from Last 3 Months Results * (ABNORMAL) COMPREHENSIVE METABOLIC PANEL (01/29/2025 7:52 AM EDT)Component ValueRef RangeTest MethodAnalysis TimePerformed AtPathologist Signature Protein, Total6.56.3 - 8.0 g/dL09/ 8:39 AM [facility] LABAlbumin4.33.9 - 4.9 g/dL01/29/2025 8:39 AM [facility] LABCalcium, Total9.48.5 - 10.2 mg/dL01/29/2025 8:39 AM [facility] LABBilirubin, Total0.40.2 - 1.3 mg/dL01/29/2025 8:39 AM [facility] LABAlkaline Zzjbjbesjya0840 - 123 U/L 01/29/2025 8:39 AM [facility] EUPHDB7254 - 35 U/L 01/29/2025 8:39 AM [facility] JFWYSU446 - 38 U/L 01/29/2025 8:39 AM [facility] WSOOhgiobm9412 - 99 mg/dL 01/29/2025 8:39 AM [facility] LABComment: The [place] Diabetes Association (ADA) provides guidance for cutoff values for fasting glucose andrandom glucose. The ADA defines fasting as no caloric intake for at least 8 hours. Fasting plasma glucose results between 100 to 125 mg/dL indicate increased risk for diabetes (prediabetes). Fasting plasma glucose results greater than or equal to 126 mg/dL meet the criteria for diagnosis of diabetes. In the absence of unequivocal hyperglycemia, results should be confirmed by repeat testing. In a patient with classic symptoms of hyperglycemia or hyperglycemic crisis, random plasma glucose results greater than or equal to 200 mg/dL meet the criteria for diagnosis of diabetes. Reference: Standards of Medical Care in Diabetes 2016, [place] Diabetes Association. Diabetes Care. 2016.39(Suppl 1). ECK501 - 21 mg/dL01/29/2025 8:39 AM [facility] Creatinine0.860.58 - 0.96 mg/dL01/29/2025 8:39 AM [facility] TBADbgvlr569291 - 144 mmol/L01/29/2025 8:39 AM [facility] LABPotassium3.6(L)3.7 - 5.1 mmol/L01/29/2025 8:39 AM [facility] DKTLvlscpat60601 - 107 mmol/L01/29/2025 8:39 AM [facility] NXLGG48434 - 30 mmol/L01/29/2025 8:39 AM [facility] LABAnion Qhm176 - 15 mmol/L01/29/2025 8:39 AM [facility] LABEstimated Glomerular Filtration Rate98>=60 mL/min/1.73m 01/29/2025 8:39 AM [facility] LABComment:Estimated Glomerular Filtration Rate (eGFR) is calculated using the 2020 CKD-EPI creatinine equation. This equation utilizes serum creatinine, sex, and age as parameters. The creatinine assay has traceable calibration to isotope dilution- mass spectrometry. Refer to KDIGO guidelines for clinical interpretation. In patients with unstable renal function, e.g. those with acute kidney injury, the eGFRmay not accurately reflect actual GFR.Specimen (Source)Anatomical Location / LateralityCollection Method / VolumeCollection TimeReceived TimeBloodBLOOD SPECIMEN / UnknownVenipuncture / Xvxaspv3501/29/2025 7:52 AM EDT01/29/2025 7:53 AM EDT Narrative Authorizing ProviderResult TypeResult StatusKai Barragan MD, PhDLABORATORYFinal ResultPerforming OrganizationAddressCity/State/ZIP CodePhone Number [facility] [address] [place] [address], from Last 3 Months Insurance Care Teams Team MemberRelationshipSpecialtyStart DateEnd Date Link, Flako Beasley DO [address] [place] [phone] Family Orftkmok81/20/22
== END 2025-03-26 15:56 | disposition home or self-care (01) ==
LOC: LAB 15:55
PROVIDERS: Family Provider Pediatrics; Visit Provider Physician Assistant
DX: Z01.419 Encounter for gynecological examination (general) (routine) without abnormal findings (principal)
CPT/HCPCS: 88175

== ENCOUNTER 2025-04-23 13:16 | Outpatient (REF) | payer OTHER, MEDICAID, SELFPAY ==
--- OUTSIDE RECORDS SUMMARY | 2024-09-19 03:15 | XMS_ITS ---
Author Organization [facility] Servic es Address [address] [place] [address] Care Team Providers Care Manager Of Internal Audit Name Role Phone Paula Ewing Primary Care Provider Adrianna Guidry Unavailable [phone] GUICHO MONTEIRO Unavailable Unavailable REASON FOR VISIT 3 weeks Social History Sex Assigned At : Social History Observation Description Sex Assigned At Female Encounters Encounter Location Date Provider Diagnosis [address] [place] [address] 09/19/2024 Paula Ewing Plan Of Treatment No Information Progress Notes * VIVIAN MCNALLY GDOB:2000 (24 yo F)Acc No.[id number]:09/19/2024 Behavioral Health Patient: Tamar VIVIAN VALENTINE Provider:?TARA CHENGHNP-BCDOB: 2000???Age:23 Y???Sex:FemaleDate:09/19/2024Phone:[phone]:[address] [place], [place] Subjective: * Chief Complaints: * 3 weeks * Electronic signature of SONA Cheng BC on 04/30/2025 at 01:19 PM EST Sign off status: Pending * Appointment Provider: TARA MORELHNP-BC Date: 0 09/19/2024 Generated for Printing/Faxing/eTransmitting on:?04/30/2025 01:19 PM EST
--- OUTSIDE RECORDS SUMMARY | 2024-09-25 09:15 | XMS_ITS ---
Author Organization [facility] Servic es Address [address] [place] [address] Care Team Providers Care Pilot Captain Name Role Phone Paula Ewing Primary Care Provider [phone] Adrianna Guidry [phone] GUICHO MONTEIRO Unavailable Unavailable REASON FOR VISIT 2 week f/u Social History Sex Assigned At : Social History Observation Description Sex Assigned At Female Encounters Encounter Location Date Provider Diagnosis [address] [address] 09/25/2024 Adrianna Guidry Plan Of Treatment No Information Progress Notes * VIVIAN MCNALLY GDOB:2000 (24 yo F)Acc No.[id number]:09/25/2024 F/U - Patient Patient: Tamar VALENTINE VIVIAN Maria C :?Adrianna Guidry LPCDOB:2000???Age:23 Y ???Sex:FemaleDate:09/25/2024Phone:[phone]:[address], [place]Imw:Paula Ewing Subjective: * Chief Complaints: * 2 week f/u Care Plan Details* * Electronic signature of Adrianna Guidry LPC on 04/30/2025 at 01:18 PM ESTSign off status: Pending * Provider: Eleni Guidry LPC Date: 0 09/25/2024 Generated for Printing/Faxing/eTransmitting on:?04/30/2025 01:18 PM EST
--- OUTSIDE RECORDS SUMMARY | 2025-01-08 05:30 | XMS_ITS ---
Author Organization [facility] Address [address] [place] [address] Care Team Providers Care Afloat Cryptologic Manager Name Role Phone Paula Ewing Primary Care Provider Adrianna Guidry Unavailable [phone] GUICHO MONTEIRO Unavailable Unavailable REASON FOR VISIT 2 week f/u Social History Sex Assigned At : Social History Observation Description Sex Assigned At Female Encounters Encounter Location Date Provider Diagnosis [address] [facility] [place] [address] 01/08/2025 Adrianna Guidry Plan Of Treatment No Information Progress Notes * VIVIAN MCNALLY GDOB:2000 (24 yo F)Acc No.[id number]:01/08/2025 F/U - Patient Patient: Tamar VALENTINE VIVIAN Maria C :?Adrianna Guidry LPCDOB:2000???Age:24 Y ???Sex:FemaleDate:01/08/2025Phone:[phone]:[address], [place]Cae:Paula Ewing Subjective: * Chief Complaints: * 2 week f/u Billing Information: * Procedure Codes: Care Plan Details* * Electronic signature of Adrianna Guidry LPC on 04/30/2025 at 01:20 PM ESTSign off status: Pending * Provider: Eleni Guidry LPC Date: 0 01/08/2025 Generated for Printing/Faxing/eTransmitting on:?04/30/2025 01:20 PM EST
--- OUTSIDE RECORDS SUMMARY | 2025-01-14 06:15 | XMS_ITS ---
Author Organization [facility] Servic es Address [address] [place] [address] Care Team Providers Care Reversing Mill Roller Name Role Phone Paula Ewing Primary Care Provider Adrianna Guidry Unavailable [phone] GUICHO MONTEIRO Unavailable Unavailable REASON FOR VISIT 1 month f/u Social History Sex Assigned At : Social History Observation Description Sex Assigned At Female Encounters Encounter Location Date Provider Diagnosis [address] [place] [address] 01/14/2025 Paula Ewing Plan Of Treatment No Information Progress Notes * VIVIAN MCNALLY GDOB:2000 (24 yo F)Acc No.[id number]:01/14/2025 Behavioral Health Patient: Tamar VIVIAN VALENTINE Provider:?SONA ASENCIO-BCDOB: 2000???Age:24 Y???Sex:FemaleDate:01/14/2025Phone:[phone]:[address], [place] Subjective: * Chief Complaints: * 1 month f/u Billing Information: * Procedure Codes: * Electronic signature of SONA Asencio BC on 04/30/2025 at 01:18 PM EST Sign off status: Pending * Appointment Provider: SONA MOREL-KATI Date: 0 01/14/2025 Generated for Printing/Faxing/eTransmitting on:?04/30/2025 01:18 PM EST
--- OUTSIDE RECORDS SUMMARY | 2025-02-19 05:30 | XMS_ITS ---
Author Organization [facility] Address [address] [place] [address] Care Team Providers Care Behavioral Intervention Specialist Name Role Phone SAEIDMARTINCHRISTINE Unavailable Unavailable Edy Khoury Unavailable [phone] REASON FOR VISIT LEFT GREAT TOE/LEFT HAND PAIN Encounters Encounter Location Date Provider Diagnosis [facility] [address] [place] [address] 02/19/2025 Edy Khoury Acute pain of left foot M79.672 and Pain in left hand M79.642 Assessments Encounter Date Diagnosis (ICD Code) Assessment Notes Treatment Notes Treatment Clinical Notes Section Notes 02/19/2025 Acute pain of left foot (ICD-10 - M79.672) 02/19/2025Pain in left hand (ICD-10 - M79.642) Plan Of Treatment Pending Test Test Name Order Date SCC- FOOT 3 VIEW LEFT 26511 02/19/2025 SCC- HAND 3 VIEW LEFT 68787 02/19/2025 Progress Notes * VIVIAN MCNALLY GDOB:2000 (24 yo F)Acc No.[id number]:02/19/2025 Patient:?VIVIAN MCNALLY :?Edy Khoury, MDDOB:2000???Age:24 Y ???Sex:FemaleDate:02/19/2025Phone:[phone]:[address] [place] [address] Subjective: * Chief Complaints: * 1 . LEFT GREAT TOE/LEFT HAND PAIN. * Medical History: Objective: * Vitals: Assessment: * Assessment: 1.?Acute pain of left foot - M79.672???2.?Pain in left hand - M79.642??? Plan: * Treatment: ?Imaging: SCC- FOOT 3 VIEW LEFT 967508.?Pain in left hand?Imaging: SCC- HAND 3 VIEW LEFT 07726 * Procedure Codes: 7 3630 X-ray Foot, 3 view, 03704 X-ray Hand, 3 view Forms: * Images: * Electronic signature of Edy Khoury MD on 04/30/2025 at 01:19 PM ESTSign off status: Pending * Provider: Tri Khoury MD Date: 1 Generated for Printing/Faxing/eTransmitting on:?04/30/2025 01:19 PM EST
--- OUTSIDE RECORDS SUMMARY | 2025-02-27 03:30 | XMS_ITS ---
Author Organization [facility] Servic es Address [address] [place] [address] Care Team Providers Care Lace Weaver Name Role Phone Paula Ewing Primary Care Provider Adrianna Guidry Unavailable [phone] GUICHO MONTEIRO Unavailable Unavailable REASON FOR VISIT BH F/U Social History Sex Assigned At : Social History Observation Description Sex Assigned At Female Encounters Encounter Location Date Provider Diagnosis [address] [place] [address] 02/27/2025 Paula Ewing Plan Of Treatment No Information Progress Notes * VIVIAN MCNALLY GDOB:2000 (24 yo F)Acc No.[id number]:02/27/2025 Behavioral Health Patient: Tamar VIVIAN VALENTINE Provider:?TARA CHENGHNP-BCDOB: 2000???Age:24 Y???Sex:FemaleDate:02/27/2025Phone:[phone]:[address] [place], [place] Subjective: * Chief Complaints: * B H F/U * Electronic signature of SONA Cheng BC on 04/30/2025 at 01:19 PM EST Sign off status: Pending * Appointment Provider: TARA MORELHNP-BC Date: Generated for Printing/Faxing/eTransmitting on:?04/30/2025 01:19 PM EST
--- OUTSIDE RECORDS SUMMARY | 2025-04-23 11:30 | XMS_ITS | Encounter Summary ---
Author Organization [facility] Address [address] [place] [address] Care Team Providers Care Chief Communications Officer Name Role Phone Radha Camacho DO Unavailable [phone] Trinity Hansen DO Primary Care Provider Reason for Visit * ReasonCommentsProcedure Encounter Details DateTypeDepartmentCare Team (Latest Contact Info)Zhqnwqwfbjv62/23/2025 11:30 AM ESTProcedure Visit [facility] [address] [place] [address] Lul Powell DO [address] [place], [facility]11 Colposcopy needed after cervical smear; LGSIL of cervix of undetermined significance Social History Tobacco UseTypesPacks/DayYears UsedDateSmoking Tobacco: NeverSmokeless Tobacco: Never Tobacco Cessation:Counseling Given: Not Answered Alcohol UseStandard Drinks/WeekCommentsNever0 (1 standard drink = 0.6 oz pure alcohol)caffeine intake: 1-2 cups per dayCommentsNoSex and Gender InformationValueDate RecordedSex Assigned at BirthNot on fileLegal SexFemale 07/14/2022 6:39 PM EDTGender IdentityNot on fileSexual OrientationNot on file documented as of this encounter Last Filed Vital Signs Vital SignReadingTime TakenCommentsBlood Xvedyjdb71/6204/23/2025 11:54 AM EST Pulse--Temperature--Respiratory Rate--Oxygen Saturation--Inhaled Oxygen Concentration--Qrghbc75.4 kg (197 lb)04/23/2025 11:54 AM ESTHeight--Body Mass Index34.9008/30/2023 9:11 AM EDTdocumented in this encounter Progress Notes * Radha Ferro, DAIRY FEED WORKER - 04/23/2025 11:30 AM ESTAssociated Order(s): Colposcopy Post-Procedure Diagnose(s): Colposcopy needed after cervical smear Patient ID: Kenya Polanco is a 24 y.o. female who presents for Procedure Reason for Appointment: Patient presents today for a Colposcopy appointment. MEDICATIONS Current Outpatient Medications Medication Instructions buPROPion XL (WELLBUTRIN XL) 300 mg, Every morning cetirizine (ZYRTEC) 10 mg, Every 24 hours desogestrel-ethinyl estradiol (Apri) 0.15-30 MG-MCG tablet 1 tablet, Oral, Daily, Take 1 tablet by mouth daily escitalopram (LEXAPRO) 10 mg, Daily fluticasone (Flonase Allergy Relief) 50 MCG/ACT nasal spray Every 12 hours hydrOXYzine HCl (Atarax) 25 MG tablet Every 24 hours montelukast (Singulair) 10 MG tablet 1 tablet, Oral, Daily ALLERGIES Allergies Allergen Reactions Wound Dressing Adhesive Itching PROBLEMS Active Ambulatory Problems Diagnosis Date Noted Sprain of left little finger 09/22/2022 Paresthesia of skin 07/19/2023 Resolved Ambulatory Problems Diagnosis Date Noted No Resolved Ambulatory Problems Past Medical History: Diagnosis Date ADHD (attention deficit hyperactivity disorder) Anxiety Autoimmune disorder (HCC) Clotting disorder (HHS-HCC) Depression Hypertension Lupus Numbness Ovarian cyst HISTORY PAST MEDICAL HISTORY SOCIAL HISTORY Past Medical History: Diagnosis Date ADHD (attention deficit hyperactivity disorder) Anxiety Autoimmune disorder (HCC) Clotting disorder (HHS-HCC) Depression Hypertension Lupus Numbness Ovarian cyst Social History Tobacco Use Smoking status: Never Smokeless tobacco: Never Substance Use Topics Alcohol use: Never Comment: caffeine intake: 1-2 cups per day Drug use: Never Comment: Denies smoking marijuna FAMILY HISTORY Family History Problem Relation Name Age of Onset Hypertension Mother Lidia Polanco Mental illness Mother Lidia Polanco Migraines Mother Lidia Polanco Diabetes Father Torin Polanco Hypertension Father Torin Polanco Stroke Father Torin Polanco Hyperlipidemia Father Torin Polanco Diabetes Paternal Grandmother Radha Polanco Heart disease Paternal Grandmother Radha Polanco Diabetes Paternal Grandfather Scar Polanco Hypertension Paternal Grandfather Scar Polanco Heart disease Paternal Grandfather Scar Polanco Stroke Paternal Grandfather Scar Polanco Asthma Sibling Depression Sibling Migraines Sibling SURGICAL HISTORY Past Surgical History: Procedure Laterality Date TONSILLECTOMY Bilateral 05/02/2004 REVIEW OF SYSTEMS Review of Systems: Review of Systems Constitutional: Negative. HENT: Negative. Eyes: Negative. Respiratory: Negative. Cardiovascular: Negative. Gastrointestinal: Negative. Genitourinary: Negative. Musculoskeletal: Negative. Skin: Negative. Neurological: Negative. All other systems reviewed and are negative. Hematological: Negative. Endocrine: Negative. Allergic/Immunologic: Negative. OBJECTIVE Objective: Physical Exam Constitutional: Appearance: Normal appearance. She is well-developed. Genitourinary: Vulva normal. Cardiovascular: Rate and Rhythm: Normal rate and regular rhythm. Pulmonary: Effort: Pulmonary effort is normal. Breath sounds: Normal breath sounds. Abdominal: General: Bowel sounds are normal. There is no distension. Palpations: Abdomen is soft. Tenderness: There is no abdominal tenderness. There is no guarding or rebound. Musculoskeletal: General: No swelling. Normal range of motion. Right lower leg: No edema. Left lower leg: No edema. Neurological: Mental Status: She is alert and oriented to person, place, and time. Skin: General: Skin is warm and dry. Psychiatric: Mood and Affect: Mood normal. Behavior: Behavior normal. Vitals and nursing note reviewed. Exam conducted with a fish processor present. Vitals: Estimated body mass index is 34.9 kg/m?? as calculated from the following: Height as of 08/29/24: 5' 3 . Weight as of this encounter: 197 lb. BP: 98/62 Patient's last menstrual period was 02/23/2025 (exact date). ASSESSMENT & PLAN Encounter Diagnosis: ICD-10-CM 1. Colposcopy needed after cervical smear R87.619 Colposcopy 2. LGSIL of cervix of undetermined significance R87.612 Colposcopy Date/Time: 04/23/2025 12:02 PM Performed by: Lul Powell DO Authorized by: Lul Powell DO Consent: Patient questions answered: yes Risks and benefits of the procedure and its alternatives discussed: yes Procedural risks discussed: Bleeding and infection Consent obtained: Written Consent given by: Patient Indication: Other indication(s): clinical abnormality Pre-procedure: Speculum was placed in the vagina: yes Prep solution(s): acetic acid Procedure: Colposcopy with: endocervical curettage Cervix visibility: fully visualized Post-procedure: Patient tolerance of procedure: Patient tolerated the procedure well with no immediate complications Instructions and paperwork completed: yes Educational handouts given: no Comments: Colposcopy: Patient is doing well and has no complaints. Pap results have been reviewed with the patient in great detail and patient voiced understanding. Patient presents today for a Colposcopy with ECC. Patient was placed in dorsal lithotomy position with feet in stirrups, a sterile speculum was placed into the vagina and the cervix was visualized. Cervix was cleansed with vinegar. Postprocedural instructions given. All if patients questions answered and she expressed understanding. Advised to call in interim with questions or concerns. Follow Up: Patient is to return in 6 months for Repeat Pap. Assessment/Plan Documented by Radha Ferro LPN on behalf of: Lul Powell DO documented in this encounter Plan of Treatment DateTypeDepartmentCare Team (Latest Contact Info)Wacxgljnwan62/30/2026 2:00 PM EDTProcedure Visit [facility] [address] [place] [address] Lul Powell DO [address], [place] [address] 04/01/2026 10:00 AM ESTProcedure Visit [facility] [address] [facility] [place] [address] Trinity Palmer PA [address] [facility] [address] [place], [place] [id number] documented as of this encounter Procedures Procedure NamePriorityDate/TimeAssociated DiagnosisCommentsCOLPOSCOPYRoutine 04/23/2025 12:02 PM EST Colposcopy needed after cervical smear LGSIL of cervix of undetermined significance documented in this encounter Results * Colposcopy (04/23/2025 12:02 PM EST) Leonard FerroRadha LPN - 04/23/2025 12:02 PM EST Radha PatriziaamauryFATOUMATA 04/23/2025 12:11 PM Colposcopy Date/Time: 04/23/2025 12:02 PM Performed by: Lul Powell DO Authorized by: Lul Powell DO ?? Consent: ??Patient questions answered: yes ?Risks and benefits of the procedure and its alternatives discussed: yes ?Procedural risks discussed: ??Bleeding and infection ??Consent obtained: ??Written ??Consent given by: ??Patient Indication: ??Other indication(s): clinical abnormality ?? Pre-procedure: ??Speculum was placed in the vagina: yes ?Prep solution(s): acetic acid ?? Procedure: ??Colposcopy with: endocervical curettage ?Cervix visibility: fully visualized ?? Post-procedure: ??Patient tolerance of procedure: ??Patient tolerated the procedure well with no immediate complications ??Instructions and paperwork completed: yes ?Educational handouts given: no ?? Comments: ?? Colposcopy: Patient is doing well and has no complaints. Pap results have been reviewed with the patient in great detail and patient voiced understanding. Patient presents today for a Colposcopy with ECC. Patient was placed in dorsal lithotomy position with feet in stirrups, a sterile speculum was placed into the vagina and the cervix was visualized. Cervix was cleansed with vinegar. Postprocedural instructions given. All if patients questions answered and she expressed understanding. Advised to call in interim with questions or concerns. Follow Up: Patient is to return in 6 months for Repeat Pap. Authorizing ProviderResult TypeResult StatusCorelakisha [facility]/BEDSIDE ORDERABLESFinal Result documented in this encounter Visit Diagnoses Diagnosis Colposcopy needed after cervical smear LGSIL of cervix of undetermined significance documented in this encounter Care Teams Team MemberRelationshipSpecialtyStart DateEnd Date Trinity Hansen DO [address] [place] [phone] PCP - GeneralFamily Medicine07/21/23 Radha Camacho DO [address] [place] [address] Referring PhysicianNeurology07/19/23documented as of this encounter
--- OUTSIDE RECORDS SUMMARY | 2025-04-24 19:17 | XMS_ITS | Continuity of Care Document ---
Author Organization [facility] Address [address] [place] [address] Phone Care Team Providers Care Compliance Reviewer Name Role Phone Lul Powell DO Attending Provider [phone] Care Teams Patient Care Team Team Status: Inactive Member Role/Relationship Status Dates Lul Powell DO Attending Provider Active Start : April 23, 2025 End: April 23, 2025 Chief Complaint and Reason for Visit Chief Complaint Admit Date Unknown April 23, 2025 10:00am Allergies, Adverse Reactions, Alerts Allergen Type Severity Reaction Last Updated Verified Status No Known Allergies Allergy Unknown December 13, 2024 5:24pmYesActive Social History Smoking Status Status Start Date End Date Date of Observa tion Never smoked tobacco (finding) December 14, 2024 7:05am Observation Status Observation Response Date of Response Legal Sex Female (finding) Sex Assigned At [facility] 2002 Problems Active Problems Problem Diagnosis/Recorded Date Onset Date Stat Generalized anxiety disorder December 13, 2024 7:44pm Unknown Active Medications Medication Status Dose Units Route Directions Qty Days Refills S tart Date Stop Date End Date Reason(s) Instructions Adherence Bupropion Hcl 300 mg tablet extended release 24 hr Active 300 MG PO Daily December 13, 2024 11:00pmUnknownCyclobenzaprine 10 mg jdcwvnItbals93MFGXCinvh as needed for muscle spasmAugust 2024 11:00pmUnknownLinaclotide (Linzess) 145 mcg sbcobikNifgoo122NRXJJRurssLtkfvo 2024 11:00pmUnknownEscitalopram Oxalate 5 mg VvusdjTedrfo1JVWNGsazf84917Sgnsqf 2024 11:00pmUnknown Advance Directives Advance Directive Response Recorded Date/ Time Advance Directives No December 13, 2024 6:37pm Insurance Providers Guarantor Kenya Polanco Address [address] [facility] [address]Xynimdv Info.Home Phone: Coverage Status Update:2024 Payer Group Member ID Coverage Type Subscriber Relationship to Subscriber Effective Date Expiration Date Bubba ALEXANDRE Id: [id number] G Hignett Id: [id number] [address] [facility] [address] Home Phone: SelfAnthem [place] Medicaid Id: [id number] G Hignett Id: [id number] [address] [facility] [address] Home Phone: Self Encounters Encounter Location(s) Arrival/Admit Date Discharge/Departure Date Discharge/Departure Disposition Provider(s) Departed Referred -[facility] April 23, 2025 10:00am April 23, 2025 10:01am Discharged to home care or self care (routine discharge) Lul Powell
--- OUTSIDE RECORDS SUMMARY | 2025-04-30 13:19 | XMS_ITS | Clinical Summary ---
Author Organization [facility] Address [address] [place] [address] Care Team Providers Care Dredge Worker Name Role Phone Unavailable Primary Care Provider Unavailabl e Allergies Active AllergyReactionsCriticalityNoted DateComments*Adhesive TapeItching 04/15/2022 Medications MedicationSigDispense QuantityRefillsLast FilledStart DateEnd DateStatus fluticasone 50 MCG/ACT Suspension nasal spray 2 sprays by Nasal route daily.Active cetirizine 10 MG Chew Tab Chew 1 tablet daily.Active Montelukast 10 MG tablet Take 1 tablet by mouth daily.Active buPROPion (Wellbutrin XL) 150 MG tablet XL 1 tablet.5Active lamoTRIgine 25 MG tablet 1 tablet daily for 2 weeks and then 2 tablets daily for 2 weeks Orally as directed for 30 days5Active predniSONE 20 MG tablet Take 3 tabs daily x2 days then 2 tabs daily x2 days then 1 tab daily x2 days PO as directed 12 tablet 5Active hnpztlfq-lnshhilpd-tmqlxubmwemded 1 % otic solution 4 drops to affected ear QID for 7 days 10 mL 5Active Active Problems No known active problems Family History RelationNameStatusCommentsFatherAliveMotherAlive Social History Tobacco UseTypesPacks/DayYears UsedDateSmoking Tobacco: NeverSmokeless Tobacco: Never Tobacco Cessation:Counseling Given: Not Answered Alcohol UseStandard Drinks/WeekCommentsNever0 (1 standard drink = 0.6 oz pure alcohol)CommentsNoSex and Gender InformationValueDate RecordedSex Assigned at BirthNot on fileLegal SkfUngtcr66/14/2024 11:48 AM EDTGender IdentityNot on fileSexual OrientationNot on file Last Filed Vital Signs Vital SignReadingTime TakenCommentsBlood Qewaqhbq474/7304 9:30 AM EDT Fomdu29989/24/2025 9:30 AM JFFOmfychosojk00.9 ??C (98.4 ??F)08/23/2024 9:30 AM EDTRespiratory Biga852108/23/2024 9:30 AM EDTOxygen Nvppswieph90%08/23/2024 9:30 AM EDTInhaled Oxygen Concentration--Yvsyts53.2 kg (183 lb 6.4 oz)08/23/2024 9:30 AM KCUKwyecb809 cm (5' 3 )08/23/2024 9:30 AM EDTBody Mass Index32.49008/23/2024 9:30 AM EDT Plan of Treatment Health MaintenanceDue DateLast DoneCommentsGONORRHEA EEPGFQ11 2002HIV SCREENING GHDKAXSGQW68/02/2018HPV VACCINE ADOL (1 - 3-dose series)2017HPV VACCINE (1 - 3-dose series)2017CHLAMYDIA VYRYER3312/01/2018CERVICAL CANCER SCREENING NJBVITNNOE66/02/2024COVID-19 VACCINE ( season)2024 INFLUENZA VACCINE (#1)51, 03/31/20051202WEJSZLH53/15/2026 12/15/2015, 09/24/2008, 03/11/2004, Additional history existsPNEUMOCOCCAL VACCINE SERIESAged Out12/11/2003, 10/10/2003, 05/14/2003, Additional history existsNo longer eligible based on patient's age to complete this topicTDAP (ADULT)Bifuzioto59/15/2016, 09/24/2008, 03/11/2004, Additional history exists HEPATITIS C VIRUS JGBVIPFAACekexfltz31/15/2024 Procedures Procedure NamePriorityDate/TimeAssociated DiagnosisCommentsHEPATITIS C ANTIBODY Today09/14/2023 9:50 AM EDT Pre-employment examination from Last 3 Months or Most Recently Relevant to Health Maintenance Results * HEPATITIS C ANTIBODY (09/14/2023 9:50 AM EDT)ComponentValueRef RangeTest MethodAnalysis TimePerformed AtPathologist SignatureHEP C AB, DonorNEGATIVE NEGATIVEBUCYTUSCARAWAS [facility] - [address] - [place] Specimen (Source)Anatomical Location / LateralityCollection Method / Volume Collection TimeReceived EiaoAphsf86/15/2024 9:50 AM EDT09/14/2023 1:50 PM EDT Narrative Authorizing ProviderResult TypeResult StatusTracy Brown HR RECRUITER-CNPIMMUNOLOGY ORDERABLESFinal ResultPerforming OrganizationAddressCity/State/ZIP CodePhone Number [facility] - [address] - [place] [address] [place] [address] from Last 3 Months or Most Recently Relevant to Health Maintenance Insurance
--- OUTSIDE RECORDS SUMMARY | 2025-04-30 13:19 | XMS_ITS | Clinical Summary ---
Author Organization [facility] Address [id number] [address] [place] [address] Care Team Providers Care Harness Preparer Name Role Phone No Pcp, No Pcp Primary Care Provider Unavailabl e Allergies Active AllergyReactionsCriticalityNoted DateCommentsAdhesive Tape-Silicones Wqwmwgv2604/15/2022 Medications MedicationSigDispense QuantityRefillsLast FilledStart DateEnd DateStatus lamoTRIgine [...] needed (nausea). 30 tablet 02/08/2025tive Encounters DateTypeDepartmentCare HxdgKtagbnfmfir60/10/2025 11:19 AM EDT - 02/08/2025 1:20 PM EDTEmergency [facility] [address] [place] [address] Ko Hathaway MD Nausea and vomiting, unspecified vomiting type (Primary Dx) Discharge Disposition: Home02/08/2025Travelfrom Last 3 Months Social History Tobacco UseTypesPacks/DayYears [...] RecordedSex Assigned at BirthNot on fileLegal Sex Obwuyf4004/22/2024 3:28 PM ESTGender IdentityNot on fileSexual OrientationNot on file Last Filed Vital Signs Vital SignReadingTime TakenCommentsBlood Hqbcnamd615/6902/08/2025 1:19 PM EDT Olhun568102/08/2025 1:19 PM PIHMkmflgbpmfb81.7 ??C (98.1 ??F)02/08/2025 11:24 AM EDTRespiratory Wagd9128 11:24 AM EDTOxygen Gziczcseog65%02/08/2025 1:19 PM EDTInhaled Oxygen Concentration--Fqjkqa18.9 kg (185 lb)02/08/2025 11:24 AM FVDRqzlmw424 cm (5' 3 )02/08/2025 11:24 AM EDTBody Mass Index32.7702/08/2025 11:24 AM EDT Plan of Treatment Not on file Medical Devices Not on file Procedures Procedure NamePriorityDate/TimeAssociated DiagnosisCommentsPOCT , URINE (NUCG)Vppusxt3602/08/2025 11:52 AM EDT POCT NURSING URINE MACROSCOPIC HEWwciexk92/10/2025 11:51 AM EDT ER EXTRA URINE MNNPKTKGNZ44/10/2025 11:46 AM EDT ER EXTRA URINE VZHMILHHSCU94/10/2025 11:46 AM EDT ER EXTRA NTFKAIPIF55/10/2025 11:46 AM EDT from Last 3 Months Results * POCT , urine (02/08/2025 11:52 AM EDT)ComponentValueRef RangeTest MethodAnalysis TimePerformed AtPathologist SignaturePO Urine NegativeNegative, Bvwtmhxbmyxww38/10/2025 11:58 AM EDTPPROTESTANT HOSPITALpecimen (Source)Anatomical Location / LateralityCollection Method / VolumeCollection TimeReceived VrqoQglpb90/10/2025 11:52 AM EDT 02/08/2025 11:58 AM EDT Narrative Authorizing ProviderResult TypeResult StatusKo Hathaway [facility]GEEOINT OF CARE TEST ORDERABLESFinal ResultPerforming OrganizationAddressCity/State/ZIP CodePhone Number [facility] [address] [facility] [address], * POCT Nursing Urine Macroscopic UA (02/08/2025 11:51 AM EDT)ComponentValueRef RangeTest MethodAnalysis TimePerformed AtPathologist SignaturePO Urine Specific Gravity1.0201.010, 1.015, 1.020, 1.6602302/08/2025 11:[address] [facility] Urine Leukocyte EsteraseNegative Rrzspgeo71/10/2025 11:52 AM EDTPLA[facility] Urine KkrhqkvBogjuymkFbowocdl64/10/2025 11:52 AM EDTPLAKEHEALTH [facility] Urine pH7.55.0, 6.0, 6.5, 7.0, 7.5, 8.0, 8.5, 5.510 11:52 AM EDST[facility] Urine ProteinNegativeNegative 02/08/2025 11:52 AM [facility] Urine Glucose PhfulkyiVkjdleeb03/10/2025 11:52 AM [facility] Urine AyhxpzoUokjkyakJxxlfhyn05/10/2025 11:52 AM [facility] Urine Urobilinogen1.0 E.U./dL02/08/2025 11:52 AM [facility] Urine EyvxyeeybYuagstrmTcpuggts54/10/2025 11:52 AM [facility] Urine Blood/HGBNegativeNegative 02/08/2025 11:52 AM [facility] (Source) Anatomical Location / LateralityCollection Method / VolumeCollection Time Received UixpEhjew06/10/2025 11:51 AM EDT1 11:52 AM EDT Narrative Authorizing ProviderResult TypeResult StatusKo Hathaway [facility]GEEOINT OF CARE TEST ORDERABLESFinal ResultPerforming OrganizationAddressCity/State/ZIP CodePhone Number [address] [place] [address], [place] * Extra Urine [place] (02/08/2025 11:46 AM EDT)ComponentValueRef RangeTest Method Analysis TimePerformed AtPathologist SignatureExtra TubeAuto Resulted 02/08/2025 1:01 PM [facility] (Source) Anatomical Location / LateralityCollection Method / VolumeCollection Time Received TimeUrineUrine specimen collection, clean catch / Uqxxije4402/08/2025 11:46 AM EDT1 12:04 PM EDT Narrative Authorizing ProviderResult TypeResult StatusKo CLANCY ORDERABLES Final ResultPerforming OrganizationAddressCity/State/ZIP CodePhone Number [address] [place] [address], [place] * Extra Urine Culture (02/08/2025 11:46 AM EDT)ComponentValueRef RangeTest MethodAnalysis TimePerformed AtPathologist SignatureExtra TubeAuto Resulted 02/08/2025 1:01 PM EDUniversity [facility] (Source) Anatomical Location / LateralityCollection Method / VolumeCollection Time Received TimeUrineUrine specimen collection, clean catch / Zzvumlj4202/08/2025 11:46 AM EDT1 12:05 PM EDT Narrative Authorizing ProviderResult TypeResult StatusKo CLANCY ORDERABLES Final ResultPerforming OrganizationAddressCity/State/ZIP CodePhone Number [address] [place] [address], * Extra Urine (02/08/2025 11:46 AM EDT)ComponentValueRef RangeTest Method Analysis TimePerformed AtPathologist SignatureExtra TubeAuto Resulted 02/08/2025 1:01 PM [facility] (Source) Anatomical Location / LateralityCollection Method / VolumeCollection Time Received TimeUrineUrine / Wqviaal4502/08/2025 11:46 AM EDT1 12:04 PM EDT Narrative Authorizing ProviderResult TypeResult StatusKo CLANCY ORDERABLES Final ResultPerforming OrganizationAddressCity/State/ZIP CodePhone Number [address] [place] [address], from Last 3 Months Insurance Care Teams Team MemberRelationshipSpecialtyStart DateEnd Date No Pcp, [place] [address] PCP - GeneralFamily Medicine01/18/25
--- OUTSIDE RECORDS SUMMARY | 2025-04-30 13:19 | XMS_ITS | Patient Health Record ---
Author Organization [facility] Address [address] [place] [address] Care Team Providers Care Clinical Project Assistant Name Role Phone JOSI BREAUX Unavailable Unavailable Edy Khoury Unavailable [phone] Reason For Referral No Information Plan Of Treatment No Information Insurance Providers Payer Name Payer Address Payer Phone Subscriber Number Group Number Insured Name Patient Relationship to Insured Coverage Start Date Coverage End Date [employer] [address] [place] [address] [id number] VIVIAN MCNALLY Self - patient is the insured [place] [employer] [address] [place] [id number] VIVIAN MCNALLYSelf - patient is the [id number] 2025
--- OUTSIDE RECORDS SUMMARY | 2025-04-30 13:19 | XMS_ITS | Clinical Summary ---
Author Organization [facility] Address [address] [place] [address] Care Team Providers Care Floor Surfacer Name Role Phone Trinity Hansen DO Primary Care Provider [phone] Allergies No known active allergies Social History Tobacco UseTypesPacks/DayYears UsedDateSmoking Tobacco: NeverSmokeless Tobacco: Never Tobacco Cessation:Counseling Given: Not Answered Alcohol UseStandard Drinks/WeekCommentsNever0 (1 standard drink = 0.6 oz pure alcohol)CommentsNoSex and Gender InformationValueDate RecordedSex Assigned at BirthNot on fileLegal ZvdDsjymw12/21/2023 3:19 PM EDTGender Identity Not on fileSexual OrientationNot on file Last Filed Vital Signs Vital SignReadingTime TakenCommentsBlood Lpkzlayq250/9105/18/2023 5:05 PM EST Netwp608605/18/2023 5:05 PM MONUitsftqytmr14.6 ??C (97.8 ??F)05/18/2023 5:05 PM ESTRespiratory Zcit941105/18/2023 5:05 PM ESTOxygen Eimojafnbw32%05/18/2023 5:05 PM ESTInhaled Oxygen Concentration--Xgxnnc46 kg (194 lb)05/18/2023 5:12 PM EST Zfkimu209 cm (5' 3 )05/18/2023 5:12 PM ESTBody Mass Index34.37005/18/2023 5:12 PM EST Plan of Treatment Health MaintenanceDue DateLast DoneCommentsChlamydia Kumabakxg26/02/2003Wellness Visit2005Depression Screening/Follow-Up (PHQ-2/9)2014HIV Screening 2017HPV Vaccines (1 - 3-dose series)2017Meningococcal B Vaccine (1 of 2 - Standard)2018Hepatitis C Smcqnfglr69/02/2021Pap Smear12/02/2023 COVID-19 Vaccine (1 - season)2024Influenza Vaccine (#1)2024 04/30/2005, 03/31/2005Tetanus/Diphtheria/Pertussis (7 - Td or Tdap)12/14/2025 12/15/2015, 09/24/2008, 03/11/2004, Additional history existsZoster Vaccines (1 of 2)2052RSV Vaccines (1 - 1-dose 75+ series)2077Hepatitis B GaxgwzbbYxskuxsns92/09/2004, 05/14/2003, 02/12/2003, Additional history exists Pneumococcal VaccineAged Out12/11/2003, 10/10/2003, 05/14/2003, Additional history existsNo longer eligible based on patient's age to complete this topic HIB FwmrjhfrUggxgjdrv22/10/2004, 07/09/2003, 05/14/2003, Additional history existsIPV ZwpefxwwJtvazeqpg97/26/2009, 07/09/2003, 05/14/2003, Additional history existsMMR MmpobskvZlhxesjhv80/26/2009, 12/11/2003Varicella Vaccines Etautqecr88/26/2009, 12/11/2003Hepatitis A IbnwgtfxCuazmseuv37/22/2017, 12/15/2015Meningococcal ACWY KotzqjvDwaexrlab17/27/2021, 12/15/2015Rotavirus VaccinesAged OutNo longer eligible based on patient's age to complete this topic Insurance Care Teams Team MemberRelationshipSpecialtyStart DateEnd Date Trinity Hansen DO [address] [place] [address] PCP - GeneralEndocrinology/Metabolism05/18/23
--- OUTSIDE RECORDS SUMMARY | 2025-04-30 13:19 | XMS_ITS | Encounter Summary ---
Author Organization [facility] Address [address] [place] [address] Care Team Providers Care Sketcher Name Role Phone Radha Camacho DO Unavailable [phone] Trinity Hansen DO Primary Care Provider [phone] Encounter Details DateTypeDepartmentCare Team (Latest Contact Info)Paagrwxdvci56/18/2025Travel Social History Tobacco UseTypesPacks/DayYears UsedDateSmoking Tobacco: NeverSmokeless Tobacco: NeverAlcohol UseStandard Drinks/WeekCommentsNever0 (1 standard drink = 0.6 oz pure alcohol)caffeine intake: 1-2 cups per dayCommentsUnknownSex and Gender InformationValueDate RecordedSex Assigned at BirthNot on fileLegal Sex Hrqpgz7907/14/2022 6:39 PM EDTGender IdentityNot on fileSexual OrientationNot on filedocumented as of this encounter Plan of Treatment DateTypeDepartmentCare Team (Latest Contact Info)Qjfpuvubpor54/30/2026 2:00 PM EDTProcedure Visit [facility] [address] [facility] [address] Lul Powell DO [address] [place], [place] [address] 04/01/2026 10:00 AM ESTProcedure Visit [facility] o[facility]ri [facility] [address] [place] [address] Trinity Palmer PA [address] [place] [address] documented as of this encounter Visit Diagnoses Not on filedocumented in this encounter Care Teams Team MemberRelationshipSpecialtyStart DateEnd Date Trinity Hansen DO [address] [place] [address] PCP - GeneralFamily Medicine07/21/23 Radha Camacho DO [address] [place] [address] Referring PhysicianNeurology07/19/23documented as of this encounter
--- OUTSIDE RECORDS SUMMARY | 2025-04-30 13:19 | XMS_ITS | Encounter Summary ---
Author Organization [facility] Address [address] [place] [address] Care Team Providers Care Laboratory Secretary Name Role Phone Radha Camacho DO Unavailable [phone] Trinity Hansen DO Primary Care Provider [phone] Encounter Details DateTypeDepartmentCare Team (Latest Contact Info)Cgmjgwoanzr26/22/2025Travel Social History Tobacco UseTypesPacks/DayYears UsedDateSmoking Tobacco: NeverSmokeless Tobacco: NeverAlcohol UseStandard Drinks/WeekCommentsNever0 (1 standard drink = 0.6 oz pure alcohol)caffeine intake: 1-2 cups per dayCommentsUnknownSex and Gender InformationValueDate RecordedSex Assigned at BirthNot on fileLegal Sex Sspqas1607/14/2022 6:39 PM EDTGender IdentityNot on fileSexual OrientationNot on filedocumented as of this encounter Plan of Treatment DateTypeDepartmentCare Team (Latest Contact Info)Pldlwogogom16/30/2026 2:00 PM EDTProcedure Visit [facility] [address] [place] [address] Lul Powell DO [address] [place], [place] [address] 04/01/2026 10:00 AM ESTProcedure Visit [facility] [address] [place] [address] Trinity Palmer PA [address] [facility] [address] [address] documented as of this encounter Visit Diagnoses Not on filedocumented in this encounter Care Teams Team MemberRelationshipSpecialtyStart DateEnd Date Trinity Hansen DO [address] [place] [address] PCP - GeneralFamily Medicine07/21/23 Radha Camacho DO [address] [place] [address] Referring PhysicianNeurology07/19/23documented as of this encounter
--- OUTSIDE RECORDS SUMMARY | 2025-04-30 13:19 | XMS_ITS | Encounter Summary ---
Author Organization [facility] Address [facility] [place] [address] Care Team Providers Care Outgoing Inspector Name Role Phone Link, Flako Beasley DO Unavailable Source Comments In the event this information is protected by the Federal Confidentiality of Alcohol and Drug AbusePatient Records regulations: The Federal rules restrict any use of the information to criminally investigate or prosecute any alcohol or drug abuse patient.[facility] Encounter Details DateTypeDepartmentCare Team (Latest Contact Info)Uhnkrpkiryl97/15/2025Results Follow-Up Pediatric Endocrinology [address] [place] [address] Kai Barragan MD, PhD [address] [address] Social History Tobacco UseTypesPacks/DayYears UsedDateSmoking Tobacco: NeverSmokeless Tobacco: NeverAlcohol UseStandard Drinks/WeekCommentsNever0 (1 standard drink = 0.6 oz pure alcohol)PHQ-2AnswerDate RecordedPHQ-2 laxho4335Area Deprivation IndexAnswerDate RecordedNational Score (1-100), lower number is lower risk88 05/10/2024State Score (1-10), lower number is lower pdwd17305/10/2024Data from: https://www.neighborhoodatlas.medicine.[facility].edu/. Last address used for [address] Saini05/10/2024CommentsNoSex and Gender Information ValueDate RecordedSex Assigned at VkckmRqbief88/25/2022 7:48 PM ESTLegal Sex Vfrqyd0002/18/2022 12:07 PM EDTGender FzwmoqnwRpsjot23/25/2022 7:48 PM ESTSexual OrientationNot on filedocumented as of this encounter Plan of Treatment DateTypeDepartmentCare Team (Latest Contact Info)Kijxfajdqxb85/09/2026 8:40 AM EDTOffice Visit Rheumatology [address] [address] Tiffany Wright MD [address] [place] [address] 6M FUdocumented as of this encounter Visit Diagnoses Not on filedocumented in this encounter Care Teams Team MemberRelationshipSpecialtyStart DateEnd Date Link, Flako Beasley DO [address] [place] [phone] Family Gkaajfph33/20/22documented as of this encounter
--- OUTSIDE RECORDS SUMMARY | 2025-04-30 13:19 | XMS_ITS | Clinical Summary ---
Author Organization [facility] Address [address] [place] [address] Care Team Providers Care Client Customer Manager Name Role Phone Link, Flako Beasley DO Unavailable Allergies Active AllergyReactionsCriticalityNoted DateCommentsAdhesive Tape-Silicones Nzefmau0504/15/2022 Medications MedicationSigDispense QuantityRefillsLast FilledStart DateEnd DateStatus ZYRTEC-D [...] 8 yrs) 52 mg IUD as directed Zrhnwtyubjef65/18/2025Active cyclobenzaprine (FLEXERIL) 10 mg tablet Take 1 tablet by mouth once daily as needed. 30 tablet 5Active ibuprofen (MOTRIN) 600 mg tablet Take 1 tablet by mouth two times a day as needed (for pain.). 90 tablet 5Active Active Problems ProblemNoted DateDiagnosed DateAcanthosis kcqnprcud66/08/2025BMI 31.0-31.9,adult 06/13/2024Family history of diabetes lmkpjdli37/12/8150Wfuidsmrd33/12/2025 Czbyuxuwcf55/12/2025PCOS (polycystic ovarian syndrome)06/13/2024Obesity, Class I, BMI 30-34.9006/12/2024 Encounters DateTypeDepartmentCare AshfAwgqlmztbfw99/16/2025 Patient Msg Orth and [facility] [address] [place] [address] Provider, Ccf Fuhaoshswss03/15/2025Results Follow-Up Pediatric Endocrinology [address] [place] [address] Kai Barragan MD, PhD 02/13/2025Patient Update Pediatric Endocrinology [address] [place] [address] Kai Barragan MD, PhD from Last 3 Months Immunizations ImmunizationAdministration DatesNext DueHaemophilus [...] drink = 0.6 oz pure alcohol)PHQ-2AnswerDate RecordedPHQ-2 fkkfp542rea Deprivation Index AnswerDate RecordedNational Score (1-100), lower number is lower risk88 05/10/2024State Score (1-10), lower number is lower wnrk81805/10/2024Data from: https://www.neighborhoodatlas.[facility].edu/. Last address used for vdaofufkucf[address] Lacy 05/10/2024CommentsNoSex and Gender Information ValueDate RecordedSex Assigned at MswbxXwugfu36/25/2022 7:48 PM ESTLegal Sex Femzsp2802/18/2022 12:07 PM EDTGender FqmtmukaRvjcmu08/25/2022 7:48 PM ESTSexual OrientationNot on file Last Filed Vital Signs Vital SignReadingTime TakenCommentsBlood Ftcaoqep048/7407 8:36 AM EDT Uihab965611/22/2024 8:36 AM IDFQmqnjbvwxml35.4 ??C (97.5 ??F)11/22/2024 8:36 AM EDTRespiratory Fwwr307906/12/2024 12:47 PM ESTOxygen Ycpklhhhku52%11/06/2024 8:44 AM EDTInhaled Oxygen Concentration--Xcauvf31.8 kg (180 lb 5.4 oz)11/22/2024 8:36 AM UBEJyglkb116.5 cm (5' 3.58 )11/22/2024 8:36 AM EDTBody Mass Index31.36 11/22/2024 8:36 AM EDT Plan of Treatment DateTypeDepartmentCare Team (Latest Contact Info)Lifhtakkgue42/09/2026 8:40 AM EDTOffice Visit Rheumatology [address] [address] Tiffany Wright MD [address] [place] [address] 9G FUHealth MaintenanceDue DateLast DoneCommentsPeds To Adult Transition Initial Pnoffjbrvw31/02/2015Peds To Adult Transition Annual Ydmpreqhcn68/02/2017HPV Vaccine (1 - 3-dose series)2017Meningococcal B Vaccine (1 of 2 - Standard) 2018Anxiety Yifwngcnp46/02/2021hlamydia Screening (18-24)2020 Depression Aedjgtxaf80/02/2021GC (Gonorrhea) Screening (18-24)2020HIV Xiharrflv72/02/2021ervical Cancer Yoecrwdqb47/02/2024ovid-19 Vaccine ( - season)2024Influenza Vaccine (#1), 03/31/2005 DTaP,Tdap,Td Vaccine (7 - Td or Tdap), 09/24/2008, 03/11/2004, Additional history existsHepatitis B HlzeibsPihzwyhyv02/09/2004, 05/14/2003, 02/12/2003, Additional history existsHepatitis C ScreeningCompleted 09/14/2023 Procedures Procedure NamePriorityDate/TimeAssociated DiagnosisCommentsCOMPREHENSIVE METABOLIC QMUQESeeartm78/30/2025 7:52 AM EDT Hirsutism from Last 3 Months Results * (ABNORMAL) COMPREHENSIVE METABOLIC PANEL (01/29/2025 7:52 AM EDT)Component ValueRef RangeTest MethodAnalysis TimePerformed AtPathologist Signature Protein, Total6.56.3 - 8.0 g/dL01/29/2025 8:39 AM [facility] LABAlbumin4.33.9 - 4.9 g/dL01/29/2025 8:39 AM [facility] LABCalcium, Total9.48.5 - 10.2 mg/dL01/29/2025 8:39 AM [facility] LABBilirubin, Total0.40.2 - 1.3 mg/dL01/29/2025 8:39 AM [facility] LABAlkaline Oxcvclddttv1687 - 123 U/L 01/29/2025 8:39 AM [facility] XFMHPI6969 - 35 U/L 01/29/2025 8:39 AM [facility] VXDFFF487 - 38 U/L 01/29/2025 8:39 AM [facility] IMIVfnuhqo6818 - 99 mg/dL 01/29/2025 8:39 AM [facility] LABComment: The [place] Diabetes Association (ADA) provides guidance for cutoff [...] Standards of Medical Care in Diabetes 2016, [place] [employer] Association. Diabetes Care. 2016.39(Suppl 1). LJD543 - 21 mg/dL01/29/2025 8:39 AM [facility] Creatinine0.860.58 - 0.96 mg/dL01/29/2025 8:39 AM [facility] FPTFaqryb743548 - 144 mmol/L01/29/2025 8:39 AM [facility] LABPotassium3.6(L)3.7 - 5.1 mmol/L01/29/2025 8:39 AM [facility] PHWFkkygtey56528 - 107 mmol/L01/29/2025 8:39 AM [facility] FRUOP06375 - 30 mmol/L01/29/2025 8:39 AM [facility] LABAnion Mip557 - 15 mmol/L01/29/2025 8:39 AM [facility] LABEstimated Glomerular Filtration Rate98>=60 mL/min/1.73m 01/29/2025 8:39 AM [facility] LABComment:Estimated Glomerular Filtration Rate (eGFR) is calculated [...] VolumeCollection TimeReceived TimeBloodBLOOD SPECIMEN / UnknownVenipuncture / Dauqwzq8301/29/2025 7:52 AM EDT01/29/2025 7:53 AM EDT Narrative Authorizing ProviderResult TypeResult StatusKai Barragan MD, PhDLABORATORYFinal ResultPerforming OrganizationAddressCity/State/ZIP CodePhone Number [facility] [address] [place] [address], from Last 3 Months Insurance Care Teams Team MemberRelationshipSpecialtyStart DateEnd Date Link, Flako Beasley DO [address] [place] [address] [facility]02/18/22
--- OUTSIDE RECORDS SUMMARY | 2025-04-30 13:19 | XMS_ITS | Encounter Summary ---
Author Organization [facility] Address [address] [place] [address] Care Team Providers Care Tripe Washer Name Role Phone Radha Camacho DO Unavailable [phone] Trinity Hansen DO Primary Care Provider Encounter Details DateTypeDepartmentCare Team (Latest Contact Info)Bngejeylptu32/29/2025bstract [facility] [address] [place] [address] Lul Powell DO [facility] Olinda Sandoval, [facility] Social History Tobacco UseTypesPacks/DayYears UsedDateSmoking Tobacco: NeverSmokeless Tobacco: NeverAlcohol UseStandard Drinks/WeekCommentsNever0 (1 standard drink = 0.6 oz pure alcohol)caffeine intake: 1-2 cups per dayCommentsNoSex and Gender InformationValueDate RecordedSex Assigned at BirthNot on fileLegal SexFemale 07/14/2022 6:39 PM EDTGender IdentityNot on fileSexual OrientationNot on file documented as of this encounter Plan of Treatment DateTypeDepartmentCare Team (Latest Contact Info)Dwrwswxhtia17/30/2026 2:00 PM EDTProcedure Visit [facility] [address] [facility] [place] [address] Lul Powell DO [address] [facility] [place] [address] 04/01/2026 10:00 AM ESTProcedure Visit [facility] [place] [facility] [address] [facility] [place] [phone] Trinity Palmer PA [address] [facility] [address] [place], [place] [id number] documented as of this encounter Visit Diagnoses Not on filedocumented in this encounter Care Teams Team MemberRelationshipSpecialtyStart DateEnd Date Trinity Hansen DO [address] [place] [address] PCP - GeneralFamily Medicine07/21/23 Radha Camacho DO [address] [place] [address] Referring PhysicianNeurology07/19/23documented as of this encounter
--- OUTSIDE RECORDS SUMMARY | 2025-04-30 13:19 | XMS_ITS | Clinical Summary ---
Author Organization [facility] Address [address] [place] [address] Care Team Providers Care Bander Operator Name Role Phone Radha Camacho DO Unavailable [phone] Trinity Hansen DO Primary Care Provider [phone] Allergies Active AllergyReactionsCriticalityNoted DateCommentsWound Dressing Adhesive Xmpptbw7204/15/2022 Medications MedicationSigDispense QuantityRefillsLast FilledStart DateEnd DateStatus cetirizine [...] (one) time each day at the same time5ActiveHospital, Clinic, or Other Facility Administered MedicationOrdered DoseRouteFrequencyStart DateEnd Date Status Levonorgestrel intrauterine device 52 mg Indications:Encounter for IUD yxNTUkkuovouny05 Active Active Problems ProblemNoted DateDiagnosed DateParesthesia of skin07/19/2023Sprain of left little wyvleo3409/22/2022 Encounters DateTypeDepartmentCare SjolEesfohalqxf95/29/2025bstract [facility] [address] [place] [address] Lul Powell DO 04/23/2025 11:30 AM ESTProcedure Visit [facility] [place] [facility] [address] [place] [address] Lul Powell DO Colposcopy needed after cervical smear; LGSIL of cervix of undetermined qypugygztgad19/22/3269Jtaujy99/18/2025Travel 04/05/2025Orders Only [facility] [place] [address] [place] [address] Glenys Raman MA 03/26/2025 9:00 AM ESTProcedure Visit [facility] [place] [facility] [address] [place] [address] Trinity Palmer PA Well woman exam with routine gynecological exam03/26/2025linisync Result Encounter [facility] External Department Unsolicited Trinity Palmer PA 03/26/2025amboo flowsheet [facility] [place] [address] [place] [address] Trinity Palmer PA 03/26/20250047Cjlpdf47/03/2025Telephone [facility] [place] [address] [place] [address] Lul Powell DO from Last 3 Months Family History Medical HistoryRelationNameCommentsDiabetesFatherCraig HignettHyperlipidemia FatherCraig HignettHypertensionFatherCraig HignettStrokeFatherCraig Hignett HypertensionMotherJennifer HignettMental illnessMotherJennifer HignettMigraines MotherJennifer HignettDiabetesPaternal GrandfatherGilbert HignettHeart disease Paternal GrandfatherGilbert HignettHypertensionPaternal GrandfatherGilbert HignettStrokePaternal GrandfatherGilbert HignettDiabetesPaternal Grandmother Radha HignettHeart diseasePaternal GrandmotherKaren HignettAsthmaSibling DepressionSiblingMigrainesSiblingRelationNameStatusCommentsFatherCraig Hignett MotherJennifer HignettPaternal GrandfatherGilbert HignettPaternal Grandmother Radha HignettSibling Social History Tobacco UseTypesPacks/DayYears UsedDateSmoking Tobacco: NeverSmokeless Tobacco: Never Tobacco Cessation:Counseling Given: Not Answered Alcohol UseStandard Drinks/WeekCommentsNever0 (1 standard drink = 0.6 oz pure alcohol)caffeine intake: 1-2 cups per dayCommentsNoSex and Gender InformationValueDate RecordedSex Assigned at BirthNot on fileLegal SexFemale 07/14/2022 6:39 PM EDTGender IdentityNot on fileSexual OrientationNot on file Last Filed Vital Signs Vital SignReadingTime TakenCommentsBlood Ovtgqksg27/6204/23/2025 11:54 AM EST Rtcrt5836 9:11 AM CDWYyptrikougj42.5 ??C (97.7 ??F)10/08/2022 12:09 PM EDTRespiratory Wuyi617208/30/2023 9:11 AM EDTOxygen Saturation--Inhaled Oxygen Concentration--Aosthy19.4 kg (197 lb)04/23/2025 11:54 AM PTHGsnkck108 cm (5' 3 ) 08/30/2023 9:11 AM EDTBody Mass Index34.9008/30/2023 9:11 AM EDT Plan of Treatment DateTypeDepartmentCare Team (Latest Contact Info)Ykchwghmiah35/30/2026 2:00 PM EDTProcedure Visit [facility] [place] OBAmaris [address] [place] [address] [place] [address] Lul Powell DO [address] [facility] [place] [address] 04/01/2026 10:00 AM ESTProcedure Visit [facility] [address] [facility] [place] [address] Trinity Palmer PA [address] [facility] [address] [place], [place] [address] Procedures Procedure NamePriorityDate/TimeAssociated DiagnosisCommentsCOLPOSCOPYRoutine 04/23/2025 12:02 PM EST Colposcopy needed after cervical smear LGSIL of cervix of undetermined significance IGP,APTIMA HPV,AGE RTIANypjwcs04/25/2025 9:15 AM EST PAP TEST, USBSRDFHGpefvda86/25/2025 12:00 AM ESTfrom Last 3 Months Results * Colposcopy (04/23/2025 12:02 PM EST) Narrative Radha Ferro LPN - 04/23/2025 12:02 PM EST Radha Ferro LPN 04/23/2025 12:11 PM Colposcopy Date/Time: 04/23/2025 12:02 [...] months for Repeat Pap. Authorizing ProviderResult TypeResult StatusCorey Sherry [facility]/BEDSIDE ORDERABLESFinal Result * (ABNORMAL) IGP,APTIMA HPV,AGE GDLN (03/26/2025 9:15 AM EST)ComponentValueRef RangeTest MethodAnalysis TimePerformed AtPathologist SignatureAGE GDLN ACOG TESTINGNote.TBHComment: ?? TESTS ? RESULT ??FLAG ??UNITS ?REF RANGE ??LAB ?? Clinician Provided Cytology Information ?? Source.............Cervix ?? No. of containers..01 ThinPrep Vial Age Algo ACOG Nicky... ??21-29 ? 01 ?FLAG LEGEND: ?L-Low Normal,H-High Normal,LL-Alert Low,HH-Alert High <-Panic Low,>-Panic High,A-Abnormal,AA-Critical Abnormal Performed at: 01 =G ?[facility] ?? [address] [place], [place] ??[address] ?? Emperatriz Coburn MD, IGP, RFX APTIMA HPV ASCUNote(A).TBHComment: ?? TESTS ? RESULT ??FLAG ??UNITS ?REF RANGE ??LAB DIAGNOSIS: ? [A] ?02 ?? EPITHELIAL CELL ABNORMALITY. ?? LOW GRADE SQUAMOUS INTRAEPITHELIAL LESION (LSIL). Specimen adequacy: ?02 ?? Satisfactory for evaluation. ??Endocervical and/or squamous metaplastic ?? cells (endocervical component) are present. Performed by: ? 02 ?? Jaylyn Mehta Revenue Audit Clerk ([facility]) Electronically si... ?02 ?? Jazmin Gutierrez MD, Pathologist . ? 02 Pathologist ICD10: ?02 ?? R87.612 Note: ? Note ?02 ?? The Pap smear is a screening test designed to aid in the ?? detection of premalignant and malignant conditions of the ?? uterine cervix. ??It is not a diagnostic procedure and ?? should not be used as the sole means of detecting cervical ?? cancer. ??Both false-positive and false-negative reports do ?? occur. Test Methodology: ? Note ?02 ?? This liquid based ThinPrep(R) pap test was interpreted ?? using the [employer](R) [employer] Technology(TM) Cervical Algorithm whole ?? slide imaging system. . ? 02 ?? The HPV DNA reflex criteria were not met with this specimen ?? result therefore, no HPV testing was performed. ?FLAG LEGEND: ?L-Low Normal,H-High Normal,LL-Alert Low,HH-Alert High <-Panic Low,>-Panic High,A-Abnormal,AA-Critical Abnormal Performed at: 02 WB ?[facility] ?? [address] [place], [place] ??[address] ?? Emperatriz Coburn MD, Performed at: ??=G - [facility] [address] [place], [place] ??[id number] Linux Kernel Engineer: Emperatriz Coburn MD, Phone: ??[phone] Performed at: ??WB - [facility] [address] [place], [place] ??[id number] Linux Kernel Engineer: Emperatriz Coburn MD, Phone: ??[phone] Specimen (Source)Anatomical Location / LateralityCollection Method / Volume Collection TimeReceived Time03/26/2025 9:15 AM EST03/26/2025 4:16 PM EST Narrative [facility] - 04/01/2025 2:08 PM EST BRUSH-SPATULA CERVIX Authorizing ProviderResult TypeResult StatusAmy Nursery PALAB BLOOD ORDERABLES Final ResultPerforming OrganizationAddressCity/State/ZIP CodePhone Number [facility] * (ABNORMAL) PAP TEST, EXTERNAL (03/26/2025 12:00 AM EST) Narrative Authorizing ProviderResult TypeResult StatusAmy Nursery PALAB CYTOLOGY ORDERABLES Final ResultPerforming OrganizationAddressCity/State/ZIP CodePhone Number EXTERNAL LAB from Last 3 Months Insurance Care Teams Team MemberRelationshipSpecialtyStart DateEnd Date Trinity Hansen DO [address] [place], [place] [address] [address] PCP - GeneralFamily Medicine07/21/23 Radha Camacho DO [address] [place] [address] Referring PhysicianNeurology07/19/23
--- OUTSIDE RECORDS SUMMARY | 2025-04-30 13:20 | XMS_ITS | Patient Health Record ---
Author Organization [facility] es Address [address] [place] [address] Care Team Providers Care Senior Research Analyst Name Role Phone Paula Ewing Primary Care Provider [phone] ZulemaYanique mantillaissa Unavailable [phone] GUICHO MONTEIRO Unavailable Unavailable Allergies No Known Allergies Reason For Referral Reason 05/16 Attempt, lvmsg counseling referral from Dr. Monteiro for worsening anxiety, depression and mood swings. Diagnosis 1 Encounter for screen ing examination for mental health and behavioral disorders (Z13.30) Referral Organization Referrals Referring Provider First Name GUICHO Referring Provider Last Name CAYETANO Referring Provider Speciality Family Med icine Referred Organization [facility] Referred Address [address] [place] [place],[address], Referred Provider Specialty Talk Ther apy Referral [...] (52 MG) 20 MCG/DAY Intrauterine Deviceas directed Hyskwfmqtdpb36/19/25ActiveVraylar 3 MG Capsule1 capsule Orally Once a day; Duration: 30 daysif pt calls for more samples please give 2 boxes of 3 mg bjkgjrp2710/19/2024Not-Taking/PRNlamoTRIgine 100 MG Tablettake 1 tablet for 3 [...] hurting yourself in some wayNot at allTotal Ohzkb4NhyetaawehyxrXgpn DepressionSubstance abuse/mental health issues of patient/familyPatient -DeniesDrug/Alcohol:Social InfoQuestionAnswerNotesAUDIT-C (Standard)Did you have a drink containing alcohol in the past year?ToLxgqjr2NjtbuwvnttmnbvZtkisgamLkusllj Use:Social InfoQuestion AnswerNotesTobacco Control (Standard)Tobacco use:Nonsmoker Problems Problem Type SNOMED Code ICD Code Onset Dates Problem Status W/U Status Risk Notes Problem Posttraumatic stress disorder (27357076) PTSD (post-traumatic stress disorder) (F43.10) ActiveconfirmedProblemEpisodic mood disorder (83137660635203)Episodic mood disorder (F39)ActiveconfirmedProblemObsessive-compulsive disorder (957156810) Obsessive-compulsive disorder, unspecified type (F42.9)ActiveconfirmedProblem Generalized anxiety disorder (37414470)Generalized anxiety disorder (F41.1) ActiveconfirmedProblemAttention deficit hyperactivity disorder, predominantly inattentive type (31784499)ADHD (attention deficit hyperactivity disorder), 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 Vital Signs Heart Rate 91 /min 12/17/2024 Zjxhokdcukb45.3 degrees Pwegircatk35/20/5101Ihldiust81 %12/17/2024lood pressure wcbodfsar99 mm Hg12/17/20244946Zngysw72 in12/17/2024lood pressure hgxkmunz401 mm Hg 12/17/20247410Oukzsa048 lbs12/17/2024BMI31.7 kg/m212/17/2024 Encounters Encounter Location Date Provider Diagnosis [address] [address] 07/04/2024 Paula Slingwine Generalized anxiety disorder F41.1 ; PTSD (post-traumatic stress disorder) F43.10 ; Obsessive-compulsive disorder, unspecified type F42.9 ; Episodic mood disorder F39 and ADHD (attention deficit hyperactivity disorder), inattentive type F90.[address] [address] 07/25/2024 Paula Slingwine Episodic mood disord er F39 ; Generalized anxiety disorder F41.1 ; PTSD (post-traumatic stress disorder) F43.10 ; Obsessive-compulsive disorder, unspecified type F42.9 and ADHD (attention deficit hyperactivity disorder), inattentive type F90.0 [facility] [address] [place] [address] 08/06/2024 Paula Slingwine Generalized anxiety disorder F41.1 ; Obsessive-compulsive disorder, unspecified type F42.9 ; Episodic mood disorder F39 ; ADHD (attention deficit hyperactivity disorder), inattentive type F90.0 and PTSD (post-traumatic stress disorder) F43.10 [facility] [address] [facility] [place] [address] 08/14/2024 Adrianna Hollada Generalized anxiety disorder F41.1 and Episodic mood disorder F39 [address] [place] [address] 08/29/2024 Paula Slingwine Generalized anxiety disorder F41.1 ; PTSD (post-traumatic stress disorder) F43.10 ; Obsessive-compulsive disorder, unspecified type F42.9 ; Episodic mood disorder F39 and ADHD (attention deficit hyperactivity disorder), inattentive type F90.0 [facility] [address] [facility] [place] [address] 09/21/2024 Paula Slingwine Generalized anxiety disorder F41.1 ; PTSD (post-traumatic stress disorder) F43.10 ; Obsessive-compulsive disorder, unspecified type F42.9 ; Episodic mood disorder F39 and ADHD (attention deficit hyperactivity disorder), inattentive type F90.0 [facility] [address] [facility] [place] [address] 10/19/2024 Paula Slingwine Generalized anxiety disorder F41.1 ; PTSD (post-traumatic stress disorder) F43.10 ; Obsessive-compulsive disorder, unspecified type F42.9 ; ADHD (attention deficit hyperactivity disorder), inattentive type F90.0 and Episodic mood disorder F39 [facility] [address] [facility] [place] [address] 12/03/2024 Paula Slingwine Generalized anxiety disorder F41.1 ; PTSD (post-traumatic stress disorder) F43.10 ; Obsessive-compulsive disorder, unspecified type F42.9 ; Episodic mood disorder F39 and ADHD (attention deficit hyperactivity disorder), inattentive type F90.0 [facility] [address] [facility] [place] [address] 12/17/2024 Paula Slingwine Generalized anxiety disorder F41.1 ; PTSD (post-traumatic stress disorder) F43.10 ; Obsessive-compulsive disorder, unspecified type F42.9 ; Episodic mood disorder F39 and ADHD (attention deficit hyperactivity disorder), inattentive type F90.0 [facility] [address] [facility] [place] [address] 12/20/2024 Adrianna Guidry Generalized anxiety disorder F41.1 [facility] [address] [place] [address] 10/19/2024 Paula Slingwine Episodic mood disord er F39 [facility] [address] [place] [address] 10/19/2024 Paula Slingwine Episodic mood disord er F39 [facility] [address] [place] [address] 10/25/2024 Paula Slingwine Episodic mood disord er F39 [facility] [address] [place] [address] 01/28/2025 Paula Slingwine [facility] [address] [place] [address]/13/2025 Paula SlingwineGeneralized anxiety disorder F41.1 and Episodic mood disorder F39 Assessments Encounter Date Diagnosis (ICD Code) Assessment [...] patient crisis plan. Provided crisis hotline number. [facility] has good support system.Made aware to contact [...] the if the patient experiences dizziness or jlolhrfhjpdwnkr46/23/2025Generalized anxiety disorder (ICD-10 - F41.1) 10/19/2024Episodic mood [...] patient crisis plan. Provided crisis hotline number. [facility] has good support system.Made aware to contact [...] if . Do not take with other AUTOMOTIVE PARTS INTERPRETER depressants. Call 911 for difficulty breathing. 12/20/2024Generalized [...] patient crisis plan. Provided crisis hotline number. [facility] has good support system.Made aware to contact [...] problems All questions and concerns discussed . 07/25/2024DHD (attention deficit hyperactivity disorder), inattentive type (ICD-10 [...] problems All questions and concerns discussed . 08/06/2024DHD (attention deficit hyperactivity disorder), inattentive type (ICD-10 [...] Date Coverage End Date [employer] [address] [place] [address] [id number] DALI ALLISONSelf - patient is the [id number] 2024 [facility] [address] [place] [id number], ALLISONSelf - patient is the [id number] 2024 [facility] BCB[address] [place] [id number], ALLISONSelf - patient is the [id number] 2024[facility] MedicaidPO [address] [place] [address] [phone], ALLISONSelf - patient is the [id number] 2024 Medical (General) History Medical History History ICD Code anxiety ADHDdepressionraynauds syndromepcosSurgical History Surgery Date(Month/Year) tonsillectomy dentalcellulitisHospitalization History Reason Date(Month/Year) [address] 11/2024 Susan Sheridan- see surgery above
--- OUTSIDE RECORDS SUMMARY | 2025-04-30 13:20 | XMS_ITS | Encounter Summary ---
Author Organization [facility] Address [address] [place] [address] Care Team Providers Care Director Of Academic Support Name Role Phone Link, Flako Beasley DO Unavailable Source Comments In the event this information is protected by the Federal Confidentiality of Alcohol and Drug AbusePatient Records regulations: The Federal rules restrict any use of the information to criminally investigate or prosecute any alcohol or drug abuse patient.[facility] Encounter Details DateTypeDepartmentCare Team (Latest Contact Info)Fpceiehqzrs89/16/2025 Patient Msg [facility] [address] [place] [address] Provider, [facility] Appointment Social History Tobacco UseTypesPacks/DayYears UsedDateSmoking Tobacco: NeverSmokeless Tobacco: NeverAlcohol UseStandard Drinks/WeekCommentsNever0 (1 standard drink = 0.6 oz pure alcohol)PHQ-2AnswerDate RecordedPHQ-2 juass772rea Deprivation IndexAnswerDate RecordedNational Score (1-100), lower number is lower risk88 05/10/2024State Score (1-10), lower number is lower htjh182/09/2025Data from: https://www.neighborhoodatlas.medicine.[facility].edu/. Last address used for v[address] A Saini05/10/2024CommentsNoSex and Gender Information ValueDate RecordedSex Assigned at PqkzuQqybqv05/25/2022 7:48 PM ESTLegal Sex Pjzsiv5102/18/2022 12:07 PM EDTGender RfjrmrwbVorwzp70/25/2022 7:48 PM ESTSexual OrientationNot on filedocumented as of this encounter Plan of Treatment DateTypeDepartmentCare Team (Latest Contact Info)Xhrbytnzbip44/09/2026 8:40 AM EDTOffice Visit Rheumatology [address] [address] Tiffany Wright MD [address] [place] [address] 6M FUdocumented as of this encounter Visit Diagnoses Not on filedocumented in this encounter Care Teams Team MemberRelationshipSpecialtyStart DateEnd Date Link, Flako Beasley DO [address] [place] [id number] Family Fufnxlsu67/20/22documented as of this encounter
--- OUTSIDE RECORDS SUMMARY | 2025-04-30 13:20 | XMS_ITS | Clinical Summary ---
Author Organization [facility] Address [address], [address] [place] [address] Care Team Providers Care Retail Sales Professional Name Role Phone Trinity Hansen DO Primary Care Provider [phone] Allergies Active AllergyReactionsCriticalityNoted DateCommentsAdhesive TapeItching 04/15/2022 Medications [...] Problems ProblemNoted DateDiagnosed DateCellulitis of left lower uknpvhasn54/13/2025Left leg ciqhaxlhzw60/13/2025 Social History Tobacco UseTypesPacks/DayYears UsedDateSmoking Tobacco: NeverSmokeless Tobacco: Never Tobacco Cessation:Counseling Given: Not Answered Alcohol UseStandard Drinks/WeekCommentsNot Currently0 (1 standard drink = 0.6 oz pure alcohol)[facility] UtilitiesAnswerDate RecordedIn the past 12 months has the [employer], [employer], oil, or water [employer] threatened to shut off services in your [...] were you homeless or living in a senior living (including now)?No11/11/2024 AUDIT-CAnswerDate RecordedQ1: How often do [...] out before you got the money to buymore.Within the past 12 months, the food you bought just didn't last and you didn't have money to get more.1 11/11/2024Interpersonal Safety Domain Source: IP Abuse ScreeningAnswerDate RecordedPhysical nkoriJgjxdy54/22/2025Verbal svxlrUrmlwv61/22/2025Emotional dkptmFzoscw44/22/2025Financial zfwxbFkuxfa09/22/2025Sexual bvpghKzrkbx31/22/2025 CommentsNoSex and Gender InformationValueDate RecordedSex Assigned at BirthNot on fileLegal LgwTmuzda86/10/2013 3:32 PM ESTGender IdentityNot on file Sexual OrientationNot on file Last Filed Vital Signs Vital SignReadingTime TakenCommentsBlood Flxjjhza539/8209 1:43 PM EDT Injqz4820 1:43 PM DIIOdopjxsipbb32.7 ??C (98 ??F)01/21/2025 11:49 AM EDT Respiratory Ryvh6202 1:43 PM EDTOxygen Xhxldaigpi40%01/21/2025 1:43 PM EDTInhaled Oxygen Concentration--Aolhmx17.3 kg (188 lb)01/21/2025 11:49 AM EDT Zvadfo702 cm (5' 3 )01/21/2025 11:49 AM EDTBody Mass Index33.309 11:49 AM EDT Plan of Treatment Health MaintenanceDue DateLast DoneCommentsDepression Ggaknh3112/01/2014HIV screen 2017HPV vaccine (1 - 3-dose series)2017Chlamydia/GC evddgz2712/01/2018 Meningococcal B vaccine (1 of 2 - Standard)2018Hepatitis C screen 1Pap smear12/02/2023Flu vaccine (#1), 03/31/2005 COVID-19 Vaccine ( season)2024DTaP/Tdap/Td vaccine (7 - Td or Tdap)/, 09/24/2008, 03/11/2004, Additional history exists Hepatitis B gijakldJsymcfezj67/09/2004, 05/14/2003, 02/12/2003, Additional history existsPneumococcal 0-49 years VaccineAged Out12/11/2003, 10/10/2003, 05/14/2003, Additional history existsNo longer eligible based on patient's age to complete this topicHib hvjkhalRpzssxzgk98/10/2004, 07/09/2003, 05/14/2003, Additional history existsPolio uqajdmeTaavqijhq26/26/2009, 07/09/2003, 05/14/2003, Additional history existsVaricella bujxphaGcercpsds96/26/2009, 12/11/2003Hepatitis A othesodUcmnctzbo35/22/2017, 12/15/2015Meningococcal (ACWY) elqclbrSjofqpsqx59/27/2021, 12/15/2015 Insurance Advance Directives * Full Code (Latest Code Status on File) Date ActivatedDate InactivatedComments11/11/2024 10:03 AM11/12/2024 4:32 PM NameRelationshipHealthcare Agent RelationshipCommunicationJennmary feiPardeirdre Primary Decision Maker* Care Teams Team MemberRelationshipSpecialtyStart DateEnd Date Trinity Hansen DO [address] [place] [id number] PCP - [facility]05/04/22
== END 2025-04-23 13:17 | disposition home or self-care (01) ==
LOC: LAB 13:16
PROVIDERS: Family Provider Pediatrics; Visit Provider Obstetrics & Gynecology
DX: R87.619 Unspecified abnormal cytological findings in specimens from cervix uteri (principal); R87.612 Low grade squamous intraepithelial lesion on cytologic smear of cervix (LGSIL)
CPT/HCPCS: 88305